=== PATIENT | male | born 1990 | race Caucasian/White ===

== ENCOUNTER 2016-07-20 11:08 | Emergency (ER) | payer MEDICAID ==
[2016-07-20] MEDS ORDERED: IBUPROFEN 600 MG TABLET PO STA (13:06)
[2016-07-20] MEDS ORDERED: DEXAMETHASONE 10 MG/ML VIAL PO STA (13:07)
[2016-07-20] MEDS ORDERED: HYDROcod/ACETAM 5/325 MG TABLET PO STA (13:07)
[2016-07-20] MEDS ORDERED: IBUPROFEN 600 MG TABLET PO ONE (13:17)
[2016-07-20] MEDS ORDERED: CHERRY SYRUP 10 ML UDC PO ONE (13:17)
[2016-07-20] MEDS ORDERED: HYDROcod/ACETAM 5/325 MG TABLET ONE (13:17)
[2016-07-20] MEDS ORDERED: DEXAMETHASONE 10 MG/ML VIAL ONE (13:17)
== END 2016-07-20 13:50 | disposition home or self-care (01) ==
DX: J06.9 Acute upper respiratory infection, unspecified (principal); S29.011A Strain of muscle and tendon of front wall of thorax, initial encounter; X58.XXXA Exposure to other specified factors, initial encounter; J45.909 Unspecified asthma, uncomplicated; K21.9 Gastro-esophageal reflux disease without esophagitis; F17.200 Nicotine dependence, unspecified, uncomplicated
CPT/HCPCS: 71020; 93005; 99283; A9270

== ENCOUNTER 2017-08-25 11:35 | Emergency (ER) | payer MEDICAID ==
--- NOTE | 2017-08-25 12:40 | XRAY Preliminary Report ---
Exam: XR CHEST 2 VIEW X-RAY IMPRESSION: Normal 2-view chest radiography. [facility] SITE ID: [id number]
--- NOTE | 2017-08-25 12:40 | XRAY Report ---
EXAM: CHEST RADIOGRAPHY EXAM DATE: 08/25/2017 12:29 PM. CLINICAL HISTORY: Cough. COMPARISON: None. TECHNIQUE: 2 views. FINDINGS: Lungs/Pleura: No focal opacities evident. No pleural effusion. No pneumothorax. Normal volumes. Mediastinum: Heart and mediastinal contours are unremarkable. Other: None. IMPRESSION: Normal 2-view chest radiography. [facility] Referring Provider Line: [phone] SITE ID: [id number]
--- NOTE | 2017-08-25 13:00 | ED Physician Documentation ---
PD HPI DYSPNEA - Stated complaint Stated Complaint: COUGH - Chief complaint Chief Complaint: Resp - History obtained from History obtained from: Patient - History of Present Illness Timing - onset: Other (27-year-old gentleman who uses tobacco but has no other history of illness except for occasional bronchitis presents with 2 days of nonproductive cough and shortness of breath without fevers. He also has a mild sore throat and runny nose.) Review of Systems Constitutional: denies: Fever, Chills Throat: reports: Sore throat Cardiac: denies: Chest pain / pressure, Palpitations Respiratory: reports: Dyspnea, Cough. denies: Hemoptysis, Wheezing GI: denies: Abdominal Pain PD PAST MEDICAL HISTORY - Past Medical History Past Medical History: Yes Respiratory: Asthma, Other GI: GERD, Other - Past Surgical History Past Surgical History: Yes HEENT: Tonsil/Adenoidectomy - Present Medications Home Medications: Ambulatory Orders Medication Instructions Recorded Confirmed Albuterol Sulfate [Albuterol 2 puffs IH Q4HR PRN #1 [email or web address] 06/11/14 07/20/16 Sulfate Hfa] Lisinopril 20 mg PO DAILY 07/20/16 07/20/16 Albuterol Sulfate [Proventil Hfa 1 - 2 puffs IH Q4H PRN #1 08/25/17 Inhaler] [email or web address] Hydrocodone Bit/Homatrop Me-Br 5 - 10 ml PO Q6H PRN #120 ml 08/25/17 [Hydrocodone-Homatropine Syrup] predniSONE [Deltasone] 60 mg PO DAILY 5 Days tablet 08/25/17 - Allergies Allergies/Adverse Reactions: Allergies Allergy/AdvReac Type Severity Reaction Status Date / Time Penicillins Allergy Unknown Verified 08/25/17 12:34 sulfamethoxazole Allergy Unknown Verified 08/25/17 12:34 [From ] trimethoprim [From ] Allergy Unknown Verified 08/25/17 12:34 - Social History Does the pt smoke?: Yes Smoking Status: Current every day smoker Does the pt drink ETOH?: Yes Does the pt have substance abuse?: Yes Substance Use and Type: Marijuana - Immunizations Immunizations are current?: No Immunizations: TDAP >10years/unknown - POLST Patient has POLST: No PD ED PE NORMAL - Vitals Vital signs reviewed: Yes - General General: Alert and oriented X 3, Other (Frequent dry cough) - HEENT HEENT: Ears normal (Bilateral cerumen), Pharynx benign - Neck Neck: Supple, no meningeal sign, No bony TTP - Cardiac Cardiac: RRR, No murmur - Respiratory Respiratory: No respiratory distress, Clear bilaterally - Abdomen Abdomen: Non tender - Extremities Extremities: No edema, No calf tenderness / cord - Neuro Neuro: Alert and oriented X 3, Normal speech Results - Vitals Vitals: Vital Signs - 24 hr 08/25/17 11:52 Temperature 36.4 C L Heart Rate 86 Respiratory 20 Rate Blood Pressure 162/92 H O2 Saturation 98 Oxygen O2 Source Room air - Rads (name of study) 2 view chest x-ray Radiology: EMP read contemporaneously (Normal) PD MEDICAL DECISION MAKING - Sepsis Event Vital Signs: Vital Signs - 24 hr 08/25/17 11:52 Temperature 36.4 C L Heart Rate 86 Respiratory 20 Rate Blood Pressure 162/92 H O2 Saturation 98 Oxygen O2 Source Room air Departure - Departure Disposition: 01 Home, Self Care Clinical Impression: Upper respiratory infection Qualifiers: URI type: unspecified viral URI Qualified Code(s): J06.9 - Acute upper respiratory infection, unspecified Condition: Good Record reviewed to determine appropriate education?: Yes Instructions: ED Viral Syndrome, ED Smoking Cessation Prescriptions: Albuterol Sulfate [Proventil Hfa Inhaler] 1 - 2 puffs IH Q4H PRN #1 [email or web address] PRN Reason: Cough Hydrocodone Bit/Homatrop Me-Br [Hydrocodone-Homatropine Syrup] 5 - 10 ml PO Q6H PRN #120 ml PRN Reason: Cough predniSONE [Deltasone] 60 mg PO DAILY 5 Days tablet Comments: Call your doctor to arrange a follow-up appointment, make the next available appointment. In the interim, return anytime if worse or if new symptoms develop. Your blood pressure was elevated today on check into the emergency department. This does not mean that you have hypertension, it is a common phenomenon to come to the emergency department and have elevated blood pressure. I recommend that you see your primary care physician within the week to have it rechecked when you are feeling better.
[2017-08-25 13:11] VITALS: BP 124/87
== END 2017-08-25 13:10 | disposition home or self-care (01) ==
LOC: ED 11:35
DX: J06.9 Acute upper respiratory infection, unspecified (principal); R03.0 Elevated blood-pressure reading, without diagnosis of hypertension; F17.200 Nicotine dependence, unspecified, uncomplicated
CPT/HCPCS: 71046; 99283

== ENCOUNTER 2017-10-16 18:26 | Emergency (ER) | payer MEDICAID ==
[2017-10-16 19:21] LABS: BASOPHILS % (AUTO) 0.5 %; EOSINOPHILS # (AUTO) 0.1 10^3/uL (0.0-0.7); EOSINOPHILS % (AUTO) 0.8 %; HGB - HEMOGLOBIN 17.8 g/dL (14.0-18.0); LYMPHOCYTES % (AUTO) 25.4 %; MEAN CORPUSCULAR HEMOGLOBIN 30.9 pg (27.0-31.0); MEAN CORPUSCULAR HGB CONC 32.7 g/dL (32.0-36.0); MEAN CORPUSCULAR VOLUME 94.4 fL (80.0-94.0); MEAN PLATELET VOLUME 7.8 fL (7.4-11.4); MONOCYTES # (AUTO) 0.7 10^3/uL (0.0-1.0); MONOCYTES % (AUTO) 8.5 %; NEUTROPHILS # (AUTO) 5.1 10^3/uL (1.5-6.6); NEUTROPHILS % (AUTO) 64.8 %; PLT - PLATELET COUNT 268 10^3/uL (130-450); RED BLOOD COUNT 5.77 10^6/uL (4.70-6.10); RED CELL DISTRIBUTION WIDTH 13.3 % (12.0-15.0); WHITE BLOOD COUNT 7.8 x10^3/uL (4.8-10.8)
[2017-10-16 19:31] LABS: ALBUMIN 4.8 g/dL (3.2-5.5); ALBUMIN/GLOBULIN RATIO 2.1 (1.0-2.2); BILIRUBIN,TOTAL 0.9 mg/dL (0.2-1.0); CALCIUM 9.1 mg/dL (8.5-10.3); TOTAL PROTEIN 7.1 g/dL (6.7-8.2)
[2017-10-16] MEDS ORDERED: LORazepam 0.5 MG TABLET PO STA (19:42)
--- NOTE | 2017-10-16 19:43 | ED Physician Documentation ---
PD HPI HEENT FB - Chief complaint Chief Complaint: Heent - History obtained from History obtained from: Patient - History of Present Illness Timing - onset: Other (He feels like the front of his neck is been swollen for the last 2 days and he has specific worries about thyroiditis or thyromegaly. He does not have a sore throat per se. He does not have any trouble swallowing but when he starts thinking about it he gets panicky and anxious. He denies any other symptoms, does not have any fevers, chills, weight loss, or lymphadenopathy.) Review of Systems Constitutional: denies: Fever, Chills Nose: denies: Rhinorrhea / runny nose, Congestion Throat: denies: Sore throat Respiratory: denies: Dyspnea, Cough PD PAST MEDICAL HISTORY - Past Medical History Past Medical History: Yes Respiratory: Asthma, Other GI: GERD, Other - Past Surgical History Past Surgical History: Yes HEENT: Tonsil/Adenoidectomy - Present Medications Home Medications: Ambulatory Orders Medication Instructions Recorded Confirmed Albuterol Sulfate [Albuterol 2 puffs IH Q4HR PRN #1 [email or web address] 06/11/14 07/20/16 Sulfate Hfa] Lisinopril 20 mg PO DAILY 07/20/16 07/20/16 Albuterol Sulfate [Proventil Hfa 1 - 2 puffs IH Q4H PRN #1 08/25/17 Inhaler] [email or web address] Lorazepam [Ativan] 1 mg PO TID PRN #7 tablet 10/16/17 - Allergies Allergies/Adverse Reactions: Allergies Allergy/AdvReac Type Severity Reaction Status Date / Time Penicillins Allergy Unknown Verified 10/16/17 18:34 sulfamethoxazole Allergy Unknown Verified 08/25/17 12:34 [From ] trimethoprim [From ] Allergy Unknown Verified 08/25/17 12:34 - Social History Does the pt smoke?: No Smoking Status: Former smoker Does the pt drink ETOH?: Yes Does the pt have substance abuse?: Yes - Immunizations Immunizations are current?: No Immunizations: TDAP >10years/unknown - POLST Patient has POLST: No PD ED PE NORMAL - Vitals Vital signs reviewed: Yes - General General: Alert and oriented X 3, No acute distress - HEENT HEENT: Pharynx benign - Neck Neck: Other (He has prominence sternocleidomastoids, I do not appreciate any specific thyromegaly or goiter. There is no adenopathy of the neck.) - Neuro Neuro: Alert and oriented X 3, Normal speech Results - Vitals Vitals: Vital Signs - 24 hr 10/16/17 18:32 Temperature 36.7 C Heart Rate 104 H Respiratory 20 Rate Blood Pressure 163/83 H O2 Saturation 96 Oxygen O2 Source Room air - Labs Labs: Laboratory Tests 10/16/17 10/16/17 10/16/17 19:12 19:13 19:13 WBC 7.8 RBC 5.77 Hgb 17.8 Hct 54.4 H MCV 94.4 H MCH 30.9 MCHC 32.7 RDW 13.3 Plt Count 268 MPV 7.8 Neut # (Auto) 5.1 Lymph # (Auto) 2.0 Brooke # (Auto) 0.7 Eos # (Auto) 0.1 Baso # (Auto) 0.0 Absolute Nucleated RBC 0.00 Nucleated RBC % 0.1 Sodium Potassium Chloride Carbon Dioxide Anion Gap BUN Creatinine Estimated GFR (MDRD) Glucose Calcium Total Bilirubin AST ALT Alkaline Phosphatase Total Protein Albumin Globulin Albumin/Globulin Ratio Lipase TSH Thyroxine (T4) Infectious Brooke Assay NEGATIVE Group A Strep Rapid Negative 10/16/17 10/16/17 19:13 19:13 WBC RBC Hgb Hct MCV MCH MCHC RDW Plt Count MPV Neut # (Auto) Lymph # (Auto) Brooke # (Auto) Eos # (Auto) Baso # (Auto) Absolute Nucleated RBC Nucleated RBC % Sodium 137 Potassium 3.6 Chloride 105 Carbon Dioxide 24 Anion Gap 8.0 BUN 14 Creatinine 1.0 Estimated GFR (MDRD) 90 Glucose 137 H Calcium 9.1 Total Bilirubin 0.9 AST 36 ALT 69 H Alkaline Phosphatase 39 L Total Protein 7.1 Albumin 4.8 Globulin 2.3 Albumin/Globulin Ratio 2.1 Lipase 28 TSH 1.12 Thyroxine (T4) 7.68 Infectious Brooke Assay Group A Strep Rapid PD MEDICAL DECISION MAKING - Sepsis Event Vital Signs: Vital Signs - 24 hr 10/16/17 18:32 Temperature 36.7 C Heart Rate 104 H Respiratory 20 Rate Blood Pressure 163/83 H O2 Saturation 96 Oxygen O2 Source Room air Departure - Departure Disposition: 01 Home, Self Care Clinical Impression: Throat pain Condition: Good Record reviewed to determine appropriate education?: Yes Instructions: ED Pharyngitis Viral Prescriptions: Lorazepam [Ativan] 1 mg PO TID PRN #7 tablet PRN Reason: Anxiety Comments: Your blood pressure was elevated today on check into the emergency department. This does not mean that you have hypertension, it is a common phenomenon to come to the emergency department and have elevated blood pressure. I recommend that you see your primary care physician within the week to have it rechecked when you are feeling better.
[2017-10-16 19:44] LABS: T4 (THYROXINE) 7.68 ug/dL (6.09-12.23)
[2017-10-16 19:47] LABS: THYROID STIMULATING HORMONE 1.12 uIU/mL (0.34-5.60)
[2017-10-16 20:16] VITALS: BP 135/86
== END 2017-10-16 20:14 | disposition home or self-care (01) ==
LOC: ED 18:26
DX: R07.0 Pain in throat (principal); R03.0 Elevated blood-pressure reading, without diagnosis of hypertension; Z87.891 Personal history of nicotine dependence
CPT/HCPCS: 80053; 83690; 84436; 84443; 85025; 86308; 87070; 87430; 99283; A9270; 36415

== ENCOUNTER 2017-10-21 14:01 | Emergency (ER) | payer MEDICAID ==
[2017-10-21] MEDS ORDERED: LORazepam 0.5 MG TABLET PO STA (14:28)
[2017-10-21] MEDS ORDERED: METOPROLOL TARTRATE 50 MG TABLET PO STA (14:28)
--- NOTE | 2017-10-21 14:34 | ED Physician Documentation ---
History of Present Illness - Stated complaint Stated Complaint: THROAT PX/ANXIETY - Chief complaint Chief Complaint: General - History obtained from History obtained from: Patient - Additonal information Additional information: The patient is a 27-year-old male who presents with a feeling of anxiety or panicky feeling. He reports cough with scant sputum production, and feeling of thickness in his throat. He denies sore throat or fever. He is concerned about his heart racing. He reports nausea, without vomiting. He was seen here 5 days ago with similar symptoms, and at that time had a negative strep screen, negative Monospot, normal TSH and T4, and normal CBC and chemistry panel. He was diagnosed with viral pharyngitis and anxiety, and was prescribed 7 Ativan tablets. He states the Ativan helped, but he has run out and his symptoms have persisted. He quit smoking cigarettes 2 weeks ago during a bout of bronchitis. He has a history of hypertension for which he has been prescribed lisinopril. He lost his medication about 1 month ago and has not been taking any antihypertensive medication since that time. Review of Systems Constitutional: denies: Fever Eyes: denies: Discharge, Irritation Ears: denies: Ear pain, Tinnitus/ringing Nose: denies: Congestion Throat: denies: Sore throat Cardiac: denies: Chest pain / pressure Respiratory: reports: Dyspnea (Occasionally), Cough GI: denies: Abdominal Pain, Vomiting, Diarrhea : denies: Dysuria Skin: denies: Rash Musculoskeletal: denies: Back pain, Extremity swelling Neurologic: denies: Headache PD PAST MEDICAL HISTORY - Past Medical History Respiratory: Asthma, Other GI: GERD, Other - Past Surgical History Past Surgical History: Yes HEENT: Tonsil/Adenoidectomy - Present Medications Home Medications: Ambulatory Orders Medication Instructions Recorded Confirmed Albuterol Sulfate [Albuterol 2 puffs IH Q4HR PRN #1 [email or web address] 06/11/14 07/20/16 Sulfate Hfa] Lisinopril 20 mg PO DAILY 07/20/16 07/20/16 Albuterol Sulfate [Proventil Hfa 1 - 2 puffs IH Q4H PRN #1 08/25/17 Inhaler] [email or web address] Lorazepam [Ativan] 1 mg PO TID PRN #7 tablet 10/16/17 - Allergies Allergies/Adverse Reactions: Allergies Allergy/AdvReac Type Severity Reaction Status Date / Time Penicillins Allergy Unknown Verified 10/21/17 14:14 sulfamethoxazole Allergy Unknown Verified 10/21/17 14:14 [From Novra] trimethoprim [From ] Allergy Unknown Verified 10/21/17 14:14 - Social History Does the pt smoke?: No Smoking Status: Former smoker Does the pt drink ETOH?: Yes Does the pt have substance abuse?: Yes - Immunizations Immunizations are current?: No Immunizations: TDAP >10years/unknown - POLST Patient has POLST: No Results - Vitals Vitals: Vital Signs - 24 hr 10/21/17 10/21/17 10/21/17 14:09 15:26 17:01 Temperature 37.3 C Heart Rate 117 H 104 H 90 Respiratory 18 18 18 Rate Blood Pressure 168/87 H 170/104 H 150/91 H O2 Saturation 97 98 96 Oxygen O2 Source Room air - Rads (name of study) 2-view CXR Radiology: Prelim report reviewed, EMP read contemporaneously, See rad report PD MEDICAL DECISION MAKING - ED course Complexity details: reviewed old records, reviewed results, re-evaluated patient , considered differential, d/w patient ED course: The patient's presentation is significant for anxiety reaction, with associated tachycardia and hypertension. Withdrawal reaction is considered, but it is not clear as to what the patient may be withdrawing. He has been out of his lisinopril for about one month, which may help explain his hypertension, but does not really explain his other symptoms. He denies the use of alcohol or other drugs. Hyperthyroidism is unlikely with a normal TSH and T4. I doubt pulmonary embolus. Treatment in the emergency department included administration of metoprolol 25 mg orally and lorazepam 0.5 mg orally. On reevaluation the patient feels subjectively much improved, and his vital signs also improved. He has a prescription for lisinopril waiting for him at the pharmacy. I discussed with him the importance of resuming his antihypertensive medication, outpatient follow-up, as well as potentially worrisome signs or symptoms that should prompt reevaluation in the emergency department. - Sepsis Event Vital Signs: Vital Signs - 24 hr 18 18 10/21/17 14:09 15:26 17:01 Temperature 37.3 C Heart Rate 117 H 104 H 90 Respiratory 18 18 18 Rate Blood Pressure 168/87 H 170/104 H 150/91 H O2 Saturation 97 98 96 Oxygen O2 Source Room air Departure - Departure Disposition: 01 Home, Self Care Clinical Impression: Anxiety, Tachycardia Hypertension Qualifiers: Hypertension type: unspecified secondary hypertension Qualified Code(s): I15.9 - Secondary hypertension, unspecified Condition: Stable Instructions: ED Stress React Follow-Up: Iwona Cazares ARNP [Primary Care Provider] - Comments: Resume taking your lisinopril as previously prescribed. Follow up with your primary physician within 2 weeks. Call to schedule appointment. Return to the emergency department if you develop recurrent anxiety reaction, increasing difficulty breathing, or otherwise worsening symptoms. Discharge Date/Time: 10/21/17 17:22
--- NOTE | 2017-10-21 16:10 | XRAY Report ---
Procedure Date: 10/21/2017 Accession Number: [id number] / [id number] Procedure: XR - Chest 2 View X-Ray CPT Code: 66316 FULL RESULT: EXAM: CHEST RADIOGRAPHY EXAM DATE: 10/21/2017 04:00 PM. CLINICAL HISTORY: Cough and dyspnea. COMPARISON: CHEST 2 VIEW 08/25/2017. TECHNIQUE: 2 views. FINDINGS: Lungs/Pleura: No focal opacities evident. No pleural effusion. No pneumothorax. Normal volumes. Mediastinum: Heart and mediastinal contours are unremarkable. Other: None. IMPRESSION: Negative chest. [facility]
[2017-10-21 17:01] VITALS: BP 150/91
--- NOTE | 2017-10-31 07:27 | ED Physician Documentation ---
ED Addendum - Addendum Addendum: 10/31/17 07:21 This is an addendum to the previous dictation of 10/21/2017, to report physical exam, which was inadvertently omitted from that report. Vitals: Initially tachycardic at 117. General: Well developed, well-nourished male who appears anxious. HEENT: Normocephalic, atraumatic; PERRL, EOMI, oropharynx nonerythematous. Neck: Supple, without adenopathy or thyromegaly. Cardiac: rapid rate, regular rhythm, without murmur. Respiratory: Clear breath sounds bilaterally, without wheezes, rales, or rhonchi. Abdomen: Soft, nontender, without organomegaly. Back: no CVA tenderness. Derm: No rash. Extremities: No calf tenderness. Neuro: Alert, oriented x 3, no focal motor or sensory deficit.
== END 2017-10-21 17:22 | disposition home or self-care (01) ==
LOC: ED 14:01
DX: F41.9 Anxiety disorder, unspecified (principal); R00.0 Tachycardia, unspecified; I10 Essential (primary) hypertension; Z91.14 Patient's other noncompliance with medication regimen
CPT/HCPCS: 71046; 99283; A9270

== ENCOUNTER 2018-08-05 23:43 | Outpatient (CLI) | payer MEDICAID | END 2018-08-05 23:44 | disposition critical access hospital (66) | LOC: EMS 23:43 | PROVIDERS: ATTEND Surgery | DX: K92.0 Hematemesis (principal); R06.02 Shortness of breath; S01.512A Laceration without foreign body of oral cavity, initial encounter; R52 Pain, unspecified; X58.XXXA Exposure to other specified factors, initial encounter ==

== ENCOUNTER 2018-08-06 00:41 | Emergency (ER) | payer MEDICAID ==
--- NOTE | 2018-08-06 03:11 | XRAY Report ---
Reason: cough Procedure Date: 08/06/2018 Accession Number: [id number] / [id number] Procedure: XR - Chest 2 View X-Ray CPT Code: 85643 FULL RESULT: EXAM: CHEST RADIOGRAPHY EXAM DATE: 08/06/2018 03:03 AM. CLINICAL HISTORY: Cough. COMPARISON: CHEST 2 VIEW 10/21/2017 3:54 PM. TECHNIQUE: 2 views. FINDINGS: Lungs/Pleura: No focal opacities evident. No pleural effusion. No pneumothorax. Normal volumes. Mediastinum: Heart and mediastinal contours are unremarkable. Other: None. IMPRESSION: Normal 2-view chest radiography. [facility]
--- NOTE | 2018-08-06 03:13 | ED Physician Documentation ---
History of Present Illness - Stated complaint Stated Complaint: COUGHING BLOOD - Chief complaint Chief Complaint: Resp - History obtained from History obtained from: Patient - History of Present Illness Timing: How many days ago (1-2) Pain level now: 6 Improved by: nothing Worsened by: swallowing, coughing - Additonal information Additional information: c/o 1-2 days of cough that is occasionally productive. c/o sore throat. had scant blood earlier this evening which he believes is from underside of tongue, and he believes this was from the frequent coughing Review of Systems Constitutional: reports: Fever (subjective (did not take temperature but feels as though he has been having fevers)), Chills, Sweats Ears: reports: Reviewed and negative Nose: reports: Reviewed and negative Throat: reports: Sore throat Cardiac: denies: Chest pain / pressure Respiratory: reports: Cough. denies: Dyspnea, Hemoptysis, Wheezing PD PAST MEDICAL HISTORY - Past Medical History Past Medical History: Yes Respiratory: Asthma, Other GI: GERD, Other - Past Surgical History Past Surgical History: Yes HEENT: Tonsil/Adenoidectomy - Present Medications Home Medications: Ambulatory Orders Medication Instructions Recorded Confirmed Albuterol Sulfate [Albuterol 2 puffs IH Q4HR PRN #1 [email or web address].ad 06/11/14 07/20/16 Sulfate Hfa] Lisinopril 20 mg PO DAILY 07/20/16 07/20/16 Albuterol Sulfate [Proventil Hfa 1 - 2 puffs IH Q4H PRN #1 08/25/17 Inhaler] [email or web address].ad Lorazepam [Ativan] 1 mg PO TID PRN #7 tablet 10/16/17 Azithromycin [Zithromax] 250 mg PO DAILY #4 tablet 08/06/18 guaiFENesin/CODEINE [Robitussin AC] 10 ml PO Q6H PRN #100 udc 08/06/18 - Allergies Allergies/Adverse Reactions: Allergies Allergy/AdvReac Type Severity Reaction Status Date / Time Penicillins Allergy Unknown Verified 10/21/17 14:14 sulfamethoxazole Allergy Unknown Verified 10/21/17 14:14 [From ] trimethoprim [From ] Allergy Unknown Verified 10/21/17 14:14 - Social History Does the pt smoke?: No Smoking Status: Never smoker Does the pt drink ETOH?: Yes Does the pt have substance abuse?: No - Immunizations Immunizations are current?: No Immunizations: TDAP >10years/unknown - POLST Patient has POLST: No PD ED PE NORMAL - Vitals Vital signs reviewed: Yes - General General: Alert and oriented X 3, No acute distress, Well developed/nourished - HEENT HEENT: Moist mucous membranes - Neck Neck: Supple, no meningeal sign - Cardiac Cardiac: No murmur - Respiratory Respiratory: No respiratory distress, Clear bilaterally PD ED PE EXPANDED - HEENT HEENT: Pharyngeal erythema, Other (no intraoral bleeding nor lesions to suggest source of previous bleeding). No: Tonsillar exudate - Cardiac Cardiac: Tachy, Regular Rhythm Results - Vitals Vitals: Vital Signs - 24 hr 08/06/18 08/06/18 08/06/18 00:44 02:39 04:25 Temperature 36.8 C Heart Rate 119 H 90 78 Respiratory 18 18 16 Rate Blood Pressure 135/83 H 141/83 H 113/62 O2 Saturation 98 98 95 Oxygen O2 Source Room air - Labs Labs: Laboratory Tests 08/06/18 03:30 Group A Strep Rapid POSITIVE H - Rads (name of study) chest xray Radiology: Prelim report reviewed, See rad report PD MEDICAL DECISION MAKING - ED course Complexity details: reviewed results, re-evaluated patient, considered differential, d/w patient Departure - Departure Disposition: 01 Home, Self Care Clinical Impression: Strep throat Condition: Good Instructions: ED Strep Pharyngitis Conf Prescriptions: Azithromycin [Zithromax] 250 mg PO DAILY #4 tablet guaiFENesin/CODEINE [Robitussin AC] 10 ml PO Q6H PRN #100 udc PRN Reason: Cough Discharge Date/Time: 08/06/18 05:00
[2018-08-06] MEDS ORDERED: guaiFENesin/CODEINE 5 ML UDC PO STA (03:27)
[2018-08-06 04:26] VITALS: BP 113/62
[2018-08-06] MEDS ORDERED: AZITHROMYCIN 250 MG TABLET PO STA (04:33)
== END 2018-08-06 05:00 | disposition home or self-care (01) ==
LOC: ED 00:41
DX: J02.0 Streptococcal pharyngitis (principal)
CPT/HCPCS: 71046; 87430; 99283; A9270

== ENCOUNTER 2018-09-06 08:00 | Outpatient (CLI) | payer MEDICAID ==
[2018-09-06 12:26] LABS: BASOPHILS # (AUTO) 0.1 10^3/uL (0.0-0.1); BASOPHILS % (AUTO) 1.1 %; EOSINOPHILS # (AUTO) 0.1 10^3/uL (0.0-0.7); EOSINOPHILS % (AUTO) 1.9 %; HGB - HEMOGLOBIN 16.7 g/dL (14.0-18.0); LYMPHOCYTES # (AUTO) 2.6 10^3/uL (1.5-3.5); LYMPHOCYTES % (AUTO) 42.6 %; MEAN CORPUSCULAR HEMOGLOBIN 29.5 pg (27.0-31.0); MEAN CORPUSCULAR HGB CONC 32.4 g/dL (32.0-36.0); MEAN PLATELET VOLUME 9.5 fL (7.4-11.4); MONOCYTES # (AUTO) 0.6 10^3/uL (0.0-1.0); MONOCYTES % (AUTO) 9.5 %; NEUTROPHILS # (AUTO) 2.8 10^3/uL (1.5-6.6); NEUTROPHILS % (AUTO) 44.6 %; PLT - PLATELET COUNT 250 10^3/uL (130-450); RED BLOOD COUNT 5.67 10^6/uL (4.70-6.10); RED CELL DISTRIBUTION WIDTH 13.2 % (12.0-15.0); WHITE BLOOD COUNT 6.2 x10^3/uL (4.8-10.8)
[2018-09-06 12:57] LABS: ALBUMIN 4.5 g/dL (3.2-5.5); ALBUMIN/GLOBULIN RATIO 1.6 (1.0-2.2); ALKALINE PHOSPHATASE 34 IU/L (42-121); ALT ALANINE AMINOTRANSFERASE 35 IU/L (10-60); AST ASPARTATE AMINOTRANSFERASE 22 IU/L (10-42); BILIRUBIN,TOTAL 1.1 mg/dL (0.2-1.0); BUN - BLOOD UREA NITROGEN 16 mg/dL (6-20); CALCIUM 9.2 mg/dL (8.5-10.3); CARBON DIOXIDE - CO2 23 mmol/L (21-32); CHLORIDE 105 mmol/L (101-111); CHOL/HDL RATIO 4.4 (<5.0); CHOLESTEROL 160 mg/dL; GFR - MDRD 89 (>89); GLUCOSE 105 mg/dL (70-100); HDL CHOLESTEROL 36 mg/dL; LDL CHOLESTEROL,CALCULATED 106 mg/dL; LDL/HDL RATIO 2.9 (<3.6); SODIUM 137 mmol/L (135-145); TOTAL PROTEIN 7.4 g/dL (6.7-8.2); VLDL CHOLESTEROL 18 mg/dL
[2018-09-06 12:58] LABS: HEMOGLOBIN A1C 0.69 g/dL; HEMOGLOBIN A1C % 5.7 % (4.6-6.2)
== END 2018-09-06 23:59 | disposition home or self-care (01) ==
LOC: LAB.N 08:00
PROVIDERS: ATTEND Nurse Practitioner Gerontology
DX: R74.8 Abnormal levels of other serum enzymes (principal); R73.9 Hyperglycemia, unspecified; I10 Essential (primary) hypertension
CPT/HCPCS: 36415; 80053; 80061; 83036; 83721; 84443; 85025

== ENCOUNTER 2018-11-06 19:48 | Emergency (ER) | payer MEDICAID ==
--- NOTE | 2018-11-06 20:37 | XRAY Report ---
Reason: pain s/p pop and twisting ankle Procedure Date: 11/06/2018 Accession Number: [id number] / [id number] Procedure: XR - Ankle 3 View LT CPT Code: FULL RESULT: EXAM: LEFT ANKLE RADIOGRAPHY EXAM DATE: 11/06/2018 08:13 PM. CLINICAL HISTORY: Acute lateral left ankle pain, tenderness or discoloration and swelling after a twisting injury with an audible pop. COMPARISON: None. TECHNIQUE: 3 views. FINDINGS: Bones: There is an acute closed nondisplaced avulsion fracture of the lateral malleolus. There is an acute closed nondisplaced avulsion fracture of the anterior talofibular ligament at the talar insertion. No other fracture. Normal bone mineralization. No focal bone lesion. Joints: Normal. No effusion. No subluxations. The ankle mortise is normally aligned. Soft Tissues: Lateral left ankle soft tissue swelling. IMPRESSION: 1. Acute closed nondisplaced avulsion fractures of the lateral malleolus and the talar insertion of the anterior talofibular ligament. 2. Regional soft tissue swelling. 3. The remainder of the left ankle radiography is unremarkable. [facility]
--- NOTE | 2018-11-06 23:20 | ED Physician Documentation ---
PD HPI LOWER EXT INJURY - Stated complaint Stated Complaint: L ANKLE INJ - Chief complaint Chief Complaint: Ext Problem - History obtained from History obtained from: Patient - History of Present Illness PD HPI LOW EXT INJURY LOCATION: Left, Ankle Type of injury: Twist Timing - onset: How many days ago (3) Timing - details: Abrupt onset, Still present Worsened by: Moving, Palpating, Other (walking.) Associated symptoms: Swelling, Discolored (bruising along lateral ankle and side of foot.) Contributing factors: No: Prior ortho surgery Similar symptoms before: Has not had sx before Review of Systems Skin: denies: Abrasion (s), Laceration (s) Musculoskeletal: reports: Joint pain Neurologic: denies: Focal weakness, Numbness PD PAST MEDICAL HISTORY - Past Medical History Past Medical History: Yes Cardiovascular: Hypertension, High cholesterol Respiratory: Asthma, Other Neuro: None Endocrine/Autoimmune: None GI: GERD, Other : None HEENT: None Psych: Anxiety Musculoskeletal: None Derm: None - Past Surgical History Past Surgical History: Yes HEENT: Tonsil/Adenoidectomy - Present Medications Home Medications: Ambulatory Orders Medication Instructions Recorded Confirmed Albuterol Sulfate [Albuterol 2 puffs IH Q4HR PRN #1 [email or web address] 06/11/14 07/20/16 Sulfate Hfa] Lisinopril 20 mg PO DAILY 07/20/16 07/20/16 Albuterol Sulfate [Proventil Hfa 1 - 2 puffs IH Q4H PRN #1 08/25/17 Inhaler] [email or web address] Lorazepam [Ativan] 1 mg PO TID PRN #7 tablet 10/16/17 Azithromycin [Zithromax] 250 mg PO DAILY #4 tablet 08/06/18 guaiFENesin/CODEINE [Robitussin AC] 10 ml PO Q6H PRN #100 [facility] 08/06/18 - Allergies Allergies/Adverse Reactions: Allergies Allergy/AdvReac Type Severity Reaction Status Date / Time Penicillins Allergy Unknown Verified 11/06/18 19:58 sulfamethoxazole Allergy Unknown Verified 11/06/18 19:58 [From ] trimethoprim [From ] Allergy Unknown Verified 11/06/18 19:58 - Social History Does the pt smoke?: No Smoking Status: Former smoker Does the pt drink ETOH?: Yes Does the pt have substance abuse?: Yes Substance Use and Type: Marijuana - Immunizations Immunizations are current?: No Immunizations: TDAP >10years/unknown - POLST Patient has POLST: No PD ED PE NORMAL - Vitals Vital signs reviewed: Yes - General General: Alert and oriented X 3, No acute distress, Well developed/nourished - Derm Derm: Normal color, Warm and dry - Extremities Extremities: Other (left ankle with bruising and swelling laterally with tenderness at distal fibula. Medially not tender. ) - Neuro Neuro: Alert and oriented X 3, No motor deficit, No sensory deficit, Normal speech Results - Vitals Vitals: Vital Signs - 24 hr 11/06/18 23:45 Temperature 37.5 C Heart Rate 104 H Respiratory 20 Rate Blood Pressure 151/88 H O2 Saturation 98 Oxygen O2 Source Room air - Rads (name of study) left ankle Radiology: Prelim report reviewed (distal fibular avulsion fracture. ), See rad report PD MEDICAL DECISION MAKING - ED course Complexity details: reviewed results, considered differential, d/w patient Departure - Departure Disposition: 01 Home, Self Care Clinical Impression: Avulsion fracture of ankle Qualifiers: Encounter type: initial encounter Fracture type: closed Laterality: left Qualified Code(s): S82.892A - Other fracture of left lower leg, initial encounter for closed fracture Condition: Stable Record reviewed to determine appropriate education?: Yes Instructions: ED Fx Ankle Lateral Malleolus Follow-Up: Iwnoa Cazares ARNP [Primary Care Provider] - Keven Graves MD [Provider Admit Priv/Credential] - Comments: There is a small avulsion of bone off the end of the fibula which is the bone at the outside of the ankle. This represents an upper routing of the ligament attachment. We treated more as a torn ligament rather than a tractor per se would still use a walking cast boot when up and around for about 4 weeks. Follow-up with orthopedics in about a week to ensure its healing initially well enough. Call for an appointment. Ibuprofen or naproxen twice daily and add Tylenol if needed. Activity as tolerated. Discharge Date/Time: 11/06/18 23:48
[2018-11-06 23:46] VITALS: BP 151/88
== END 2018-11-06 23:48 | disposition home or self-care (01) ==
LOC: ED 19:48
DX: S82.65XA Nondisplaced fracture of lateral malleolus of left fibula, initial encounter for closed fracture (principal); S92.155A Nondisplaced avulsion fracture (chip fracture) of left talus, initial encounter for closed fracture; X50.1XXA Overexertion from prolonged static or awkward postures, initial encounter; I10 Essential (primary) hypertension; Z87.891 Personal history of nicotine dependence
CPT/HCPCS: 99283

== ENCOUNTER 2020-01-16 18:56 | Emergency (ER) | payer MEDICAID ==
[2020-01-16 19:05] VITALS: BP 169/80
--- NOTE | 2020-01-16 20:20 | ED Physician Documentation ---
History of Present Illness - Stated complaint Stated Complaint: COUGH - Chief complaint Chief Complaint: Resp - History obtained from History obtained from: Patient - Additonal information Additional information: 29-year-old male presents to the emergency department for evaluation of cough. He reports that he has a chronic cough perhaps for as long as a few years. However over the last week it has gotten worse. He is somewhat concerned he may have Covid. He reports that when he coughs he feels "really bad." He states that in the a.m. when he coughs the sputum that he brings up can be black and smell bad. He denies COVID-19 exposures. He reports that he does have some congestion but no fevers. He has a sore throat but no tonsillar exudate. No abdominal pain nausea or vomiting. He is a smoker, up to 1/2 pack/day though he is trying to quit. Review of Systems Constitutional: reports: Reviewed and negative Nose: reports: Congestion Throat: reports: Sore throat. denies: Oral lesions / sores, Swollen tonsils Cardiac: reports: Reviewed and negative Respiratory: reports: Cough. denies: Dyspnea, Hemoptysis, Wheezing GI: reports: Reviewed and negative : reports: Reviewed and negative Skin: reports: Reviewed and negative Musculoskeletal: reports: Reviewed and negative Neurologic: reports: Reviewed and negative PD PAST MEDICAL HISTORY - Past Medical History Cardiovascular: Hypertension, High cholesterol Respiratory: Asthma, Other Neuro: None Endocrine/Autoimmune: None GI: GERD, Other : None HEENT: None Psych: Anxiety Musculoskeletal: None Derm: None - Past Surgical History Past Surgical History: Yes HEENT: Tonsil/Adenoidectomy - Present Medications Home Medications: Ambulatory Orders Medication Instructions Recorded Confirmed Albuterol Sulfate [Albuterol 2 puffs IH Q4HR PRN #1 [email or web address] 06/11/14 07/20/16 Sulfate Hfa] Lisinopril 20 mg PO DAILY 07/20/16 07/20/16 Albuterol Sulfate [Proventil Hfa 1 - 2 puffs IH Q4H PRN #1 08/25/17 Inhaler] [email or web address] Lorazepam [Ativan] 1 mg PO TID PRN #7 tablet 10/16/17 Azithromycin [Zithromax] 250 mg PO DAILY #4 tablet 08/06/18 guaiFENesin/CODEINE [Robitussin AC] 10 ml PO Q6H PRN #100 [facility] [place] 08/06/18 - Allergies Allergies/Adverse Reactions: Allergies Allergy/AdvReac Type Severity Reaction Status Date / Time Penicillins Allergy Severe Anaphylaxis Verified 01/16/20 19:06 sulfamethoxazole Allergy Severe Anaphylaxis Verified 01/16/20 19:06 [From ] trimethoprim [From ] Allergy Severe Anaphylaxis Verified 01/16/20 19:06 - Social History Does the pt smoke?: Yes Smoking Status: Current every day smoker Does the pt drink ETOH?: Yes Does the pt have substance abuse?: Yes Substance Use and Type: Marijuana - Immunizations Immunizations are current?: No Immunizations: TDAP >10years/unknown - POLST Patient has POLST: No PD ED PE NORMAL - General General: Alert and oriented X 3, No acute distress - HEENT HEENT: PERRL, EOMI, Ears normal, Moist mucous membranes, Pharynx benign - Neck Neck: Supple, no meningeal sign, No adenopathy - Cardiac Cardiac: RRR, No murmur, No gallop - Respiratory Respiratory: No respiratory distress, Clear bilaterally - Abdomen Abdomen: Normal bowel sounds, Soft, Non tender Results - Vitals Vitals: Vital Signs - 24 hr 01/16/20 19:01 Temperature 37.2 C Heart Rate 83 Respiratory 20 Rate Blood Pressure 169/80 H O2 Saturation 96 Oxygen O2 Source Room air - Rads (name of study) CXR Radiology: EMP read indepedently (No acute cardiopulmonary findings) PD MEDICAL DECISION MAKING - ED course Complexity details: reviewed results, re-evaluated patient, considered differential, d/w patient ED course: This is a very well-appearing 29-year-old male who presents to the emergency department for evaluation of a cough that he has had for a number of years that he attributes to his smoking. However over the last week his cough has worsened and he reports coughing up black sputum. He has no fevers but does endorse congestion and a sore throat. COVID-19 screening is pending. I have reviewed his chest x-ray and do not find any acute cardiopulmonary abnormality. At this time I suspect that this gentleman likely has a viral upper respiratory infection. He has a very reassuring cardiopulmonary exam with full pulmonary excursion and no hypoxia. I do recommend that he remain at home and quarantine until the COVID-19 results are known. I recommend lots of fluids and smoking cessation. Emergent return precautions were discussed Departure - Departure Disposition: 01 Home, Self Care Clinical Impression: Cough, Encounter for screening laboratory testing for COVID-19 virus, Upper respiratory infection, acute Condition: Stable Record reviewed to determine appropriate education?: Yes Comments: Kelton your lungs sound very clear and normal on exam. Your chest x-ray does not show any worrisome findings. We are screening you today for COVID-19. You must remain at home until the COVID-19 results are known. We will only call you if the test is positive. You can review the results of your test in 24 to 72 hours online through the [employer] portal. I do suspect however that the cause of your worsening cough is likely a viral upper respiratory infection. I recommend that you stop smoking. I recommend you use a humidifier in your room at night and stay well-hydrated. Return to the emergency department if you develop fevers, have bloody sputum, or cannot breathe adequately
--- NOTE | 2020-01-16 20:57 | XRAY Report ---
PROCEDURE: Chest 1 View X-Ray INDICATIONS: chest pain TECHNIQUE: One view of the chest was acquired. COMPARISON: 08/06/2018 FINDINGS: Surgical changes and devices: None. Lungs and pleura: No pleural effusions or pneumothorax. Lungs are clear. Mediastinum: Mediastinal contours appear normal. Heart size is normal. Bones and chest wall: No suspicious bony lesions. Overlying soft tissues appear unremarkable. IMPRESSION: Chest without acute cardiopulmonary abnormalities. Reviewed by: Earnest London MD on 01/16/2020 8:55 PM PDT Approved by: Earnest London MD on 01/16/2020 8:55 PM PDT Station ID: [id number]
== END 2020-01-16 20:41 | disposition home or self-care (01) ==
LOC: ED 18:56
DX: J06.9 Acute upper respiratory infection, unspecified (principal); I10 Essential (primary) hypertension; F17.200 Nicotine dependence, unspecified, uncomplicated; Z20.828 Contact with and (suspected) exposure to other viral communicable diseases
CPT/HCPCS: 71045; 99282; 99284

== ENCOUNTER 2020-01-28 14:32 | Emergency (ER) | payer MEDICAID ==
[2020-01-28 14:42] VITALS: BP 138/88
[2020-01-28] MEDS ORDERED: CLINDAMYCIN 150 MG CAPSULE PO STA (14:56)
[2020-01-28] MEDS ORDERED: TETANUS/DIPHTHERIA/PERTUSSIS 0.5 ML SYRINGE IM ONE (14:56)
--- NOTE | 2020-01-28 14:59 | ED Physician Documentation ---
History of Present Illness - Stated complaint Stated Complaint: LT FOOT SWOLLEN/PX - Chief complaint Chief Complaint: Ext Problem - History obtained from History obtained from: Patient - History of Present Illness Timing: How many days ago (3) Pain level max: 8 Pain level now: 4 - Additonal information Additional information: L foot pain, redness, swelling x 3 days. Started after scratching his foot. No fevers. No chills. Worse with walking, better with rest. No injury. Review of Systems Constitutional: denies: Fever, Chills GI: denies: Vomiting Skin: denies: Rash PD PAST MEDICAL HISTORY - Past Medical History Cardiovascular: Hypertension, High cholesterol Respiratory: Asthma, Other Neuro: None Endocrine/Autoimmune: None GI: GERD, Other : None HEENT: None Psych: Anxiety Musculoskeletal: None Derm: None - Past Surgical History Past Surgical History: Yes HEENT: Tonsil/Adenoidectomy - Present Medications Home Medications: Ambulatory Orders Medication Instructions Recorded Confirmed Albuterol Sulfate [Albuterol 2 puffs IH Q4HR PRN #1 [email or web address] 06/11/14 07/20/16 Sulfate Hfa] Lisinopril 20 mg PO DAILY 07/20/16 07/20/16 Albuterol Sulfate [Proventil Hfa 1 - 2 puffs IH Q4H PRN #1 08/25/17 Inhaler] [email or web address] Lorazepam [Ativan] 1 mg PO TID PRN #7 tablet 10/16/17 Azithromycin [Zithromax] 250 mg PO DAILY #4 tablet 08/06/18 guaiFENesin/CODEINE [Robitussin AC] 10 ml PO Q6H PRN #100 [facility] 08/06/18 clindamycin HCL [Cleocin HCl] 300 mg PO Q6HR #40 capsule 01/28/20 - Allergies Allergies/Adverse Reactions: Allergies Allergy/AdvReac Type Severity Reaction Status Date / Time Penicillins Allergy Severe Anaphylaxis Verified 01/28/20 14:39 sulfamethoxazole Allergy Severe Anaphylaxis Verified 01/28/20 14:39 [From ] trimethoprim [From ] Allergy Severe Anaphylaxis Verified 01/28/20 14:39 - Social History Does the pt smoke?: Yes Smoking Status: Current every day smoker Does the pt drink ETOH?: Yes Does the pt have substance abuse?: Yes - Immunizations Immunizations are current?: No Immunizations: TDAP >10years/unknown - POLST Patient has POLST: No PD ED PE NORMAL - Vitals Vital signs reviewed: Yes - General General: Alert and oriented X 3, No acute distress - HEENT HEENT: Moist mucous membranes - Neck Neck: Supple, no meningeal sign - Derm Derm: Warm and dry - Extremities Extremities: Other (L foot - mild erythema to the dorsum of the foot, small open sore to the dorsum of the foot near the base of the 3rd and 4th toes. NVI.) - Neuro Neuro: Alert and oriented X 3 - Psych Psych: Normal mood, Normal affect Results - Vitals Vitals: Vital Signs - 24 hr 01/28/20 14:39 Temperature 36.5 C Heart Rate 97 Respiratory 16 Rate Blood Pressure 138/88 H O2 Saturation 97 Oxygen O2 Source Room air PD MEDICAL DECISION MAKING - ED course Complexity details: considered differential, d/w patient ED course: Patient with what appears to be cellulitis of the left foot. Unclear mechanism, but does appear to have an open sore where this started. Tdap given. Will place on antibiotics and have him follow-up with his doctor for further care. Patient counseled regarding signs and symptoms for which I believe and urgent re-evaluation would be necessary. Patient with good understanding of and agreement to plan and is comfortable going home at this time This document was made in part using voice recognition software. While efforts are made to proofread this document, sound alike and grammatical errors may occur. Departure - Departure Disposition: 01 Home, Self Care Clinical Impression: Cellulitis Qualifiers: Site of cellulitis: extremity Site of cellulitis of extremity: lower extremity Laterality: left Qualified Code(s): L03.116 - Cellulitis of left lower limb Condition: Good Instructions: ED Infec Skin Cellulitis Follow-Up: your,doctor in 3-5 days for recheck [Other] Prescriptions: clindamycin HCL [Cleocin HCl] 300 mg PO Q6HR #40 capsule Comments: Take all antibiotics until gone. Return if you worsen. You should start to notice improvement in the next 24-36 hrs Discharge Date/Time: 01/28/20 15:08
== END 2020-01-28 15:08 | disposition home or self-care (01) ==
LOC: ED 14:32
DX: L03.116 Cellulitis of left lower limb (principal); Z23 Encounter for immunization; I10 Essential (primary) hypertension; F17.200 Nicotine dependence, unspecified, uncomplicated
CPT/HCPCS: 90471; 90715; 99283; 99284; A9270

== ENCOUNTER 2020-05-01 13:09 | Outpatient (CLI) | payer MEDICAID ==
[2020-05-01 18:14] LABS: BASOPHILS # (AUTO) 0.1 10^3/uL (0.0-0.1); EOSINOPHILS # (AUTO) 0.1 10^3/uL (0.0-0.7); EOSINOPHILS % (AUTO) 1.5 %; HGB - HEMOGLOBIN 17.8 g/dL (14.0-18.0); LYMPHOCYTES # (AUTO) 1.8 10^3/uL (1.5-3.5); LYMPHOCYTES % (AUTO) 33.6 %; MEAN CORPUSCULAR HEMOGLOBIN 30.8 pg (27.0-31.0); MEAN CORPUSCULAR HGB CONC 33.7 g/dL (32.0-36.0); MEAN CORPUSCULAR VOLUME 91.3 fL (80.0-94.0); MEAN PLATELET VOLUME 10.1 fL (7.4-11.4); MONOCYTES # (AUTO) 0.5 10^3/uL (0.0-1.0); MONOCYTES % (AUTO) 8.6 %; NEUTROPHILS # (AUTO) 2.9 10^3/uL (1.5-6.6); NEUTROPHILS % (AUTO) 55.1 %; PLT - PLATELET COUNT 257 10^3/uL (130-450); RED BLOOD COUNT 5.78 10^6/uL (4.70-6.10); RED CELL DISTRIBUTION WIDTH 12.5 % (12.0-15.0); WHITE BLOOD COUNT 5.2 x10^3/uL (4.8-10.8)
[2020-05-01 18:43] LABS: ALBUMIN 4.8 g/dL (3.2-5.5); ALBUMIN/GLOBULIN RATIO 1.9 (1.0-2.2); ALKALINE PHOSPHATASE 33 IU/L (42-121); ALT ALANINE AMINOTRANSFERASE 58 IU/L (10-60); AST ASPARTATE AMINOTRANSFERASE 27 IU/L (10-42); BILIRUBIN,TOTAL 0.9 mg/dL (0.2-1.0); BUN - BLOOD UREA NITROGEN 15 mg/dL (6-20); CALCIUM 9.2 mg/dL (8.5-10.3); CARBON DIOXIDE - CO2 24 mmol/L (21-32); CHLORIDE 102 mmol/L (101-111); CHOL/HDL RATIO 4.2 (<5.0); CHOLESTEROL 164 mg/dL; CREATININE 0.9 mg/dL (0.6-1.2); GLUCOSE 90 mg/dL (70-100); HDL CHOLESTEROL 39 mg/dL; LDL CHOLESTEROL,CALCULATED 107 mg/dL; LDL/HDL RATIO 2.7 (<3.6); TOTAL PROTEIN 7.3 g/dL (6.7-8.2); VLDL CHOLESTEROL 18 mg/dL
[2020-05-01 19:44] LABS: HEMOGLOBIN A1c% 5.5 % (4.27-6.07)
== END 2020-05-01 23:59 | disposition home or self-care (01) ==
LOC: LAB.WCP 13:09
PROVIDERS: ATTEND Nurse Practitioner Family
DX: R74.8 Abnormal levels of other serum enzymes (principal); R73.9 Hyperglycemia, unspecified; I10 Essential (primary) hypertension
CPT/HCPCS: 36415; 80053; 80061; 83036; 83721; 84443; 85025

== ENCOUNTER 2020-12-04 15:01 | Emergency (ER) | payer MEDICAID ==
[2020-12-04 15:37] VITALS: BP 132/76
--- NOTE | 2020-12-04 16:32 | XRAY Report ---
PROCEDURE: Shoulder 3 View LT INDICATIONS: trauma, pain with ROM TECHNIQUE: 3 views of the shoulder were acquired. COMPARISON: None. FINDINGS: Bones: No acute fractures or dislocations. No suspicious bony lesions. Visualized ribs appear inta ct. Soft tissues: No suspicious soft tissue calcifications. IMPRESSION: No acute osseous abnormality. If there is clinical concern or persistent symptoms, addit ional imaging such as repeat radiographs or advanced imaging (e.g. CT, MRI) may be helpful for furthe r evaluation. Reviewed by: Kelton Sharma MD on 12/04/2020 4:30 PM PDT Approved by: Kelton Sharma MD on 12/04/2020 4:30 PM PDT Station ID: [id number]
--- NOTE | 2020-12-04 16:51 | ED Physician Documentation ---
PD HPI UPPER EXT INJURY - Stated complaint Stated Complaint: LT SHOULDER INJ - Chief complaint Chief Complaint: Trauma Ext - History obtained from History obtained from: Patient - History of Present Illness Location: Left, Shoulder Type of injury: Fall Where injury occurred: Street Timing - onset: Yesterday Timing - details: Abrupt onset Improved by: Meds Similar symptoms before: Has not had sx before Recently seen: Not recently seen - Additonal information Additional information: This is a 30-year-old man who was skateboarding last night around 5 PM when he had a rock and was lost into the air landing on his left shoulder and elbow. He put a sling on it last night took some ibuprofen which seems to be helping with the pain. It was slightly tingly yesterday but there is no tingling in the hand today. He did not hit his head. He vomited from the pain. He does feel some stretching in the neck. No prior injury. Tetanus vaccine is UTD. Review of Systems Skin: reports: Abrasion (s) (L elbow) Musculoskeletal: reports: Joint pain Neurologic: denies: Numbness, Syncope PD PAST MEDICAL HISTORY - Past Medical History Cardiovascular: Hypertension, High cholesterol Respiratory: Asthma, Other Neuro: None Endocrine/Autoimmune: None GI: GERD, Other : None HEENT: None Psych: Anxiety Musculoskeletal: None Derm: None - Past Surgical History Past Surgical History: Yes HEENT: Tonsil/Adenoidectomy - Present Medications Home Medications: Ambulatory Orders Medication Instructions Recorded Confirmed Citalopram [CeleXA] 10 mg DAILY 12/04/20 12/04/20 Losartan [Cozaar] 1 tab DAILY 12/04/20 12/04/20 - Allergies Allergies/Adverse Reactions: Allergies Allergy/AdvReac Type Severity Reaction Status Date / Time Penicillins Allergy Severe Anaphylaxis Verified 12/04/20 15:37 sulfamethoxazole Allergy Severe Anaphylaxis Verified 12/04/20 15:37 [From ] trimethoprim [From ] Allergy Severe Anaphylaxis Verified 12/04/20 15:37 - Social History Does the pt smoke?: Yes Smoking Status: Current every day smoker Does the pt drink ETOH?: Yes Does the pt have substance abuse?: Yes - Immunizations Immunizations are current?: No Immunizations: TDAP >10years/unknown - POLST Patient has POLST: No PD ED PE NORMAL - Vitals Vital signs reviewed: Yes - General General: Alert and oriented X 3, No acute distress, Well developed/nourished - HEENT HEENT: Atraumatic, PERRL - Extremities Extremities: Other (Patient has pain over the AC joint. No bruising is noted. Limited abduction of the shoulder due to pain. There is an abrasion and some bruising of the left elbow. Free range of motion and tender over that site but no tenderness over the medial or lateral malleolus. He has 2+ radial pulse. Sens) - Neuro Neuro: Alert and oriented X 3, appliance counselor 2-12 intact, No motor deficit, No sensory deficit, Normal speech - Psych Psych: Normal mood Results - Vitals Vitals: Vital Signs - 24 hr 12/04/20 15:34 Temperature 36 C L Heart Rate 93 Respiratory 16 Rate Blood Pressure 132/76 H O2 Saturation 96 Oxygen O2 Source Room air - Rads (name of study) L shoulder Radiology: See rad report, Other (No fx; step-off noted at AC joint) PD MEDICAL DECISION MAKING - ED course ED course: X-rays discussed. Will be placed in a sling. Recommend range of motion exercises. Ice and ibuprofen if needed for pain. He did not need any note for work. Follow-up with his primary care provider if not improving. Departure - Departure Disposition: 01 Home, Self Care Clinical Impression: AC separation, Abrasion of elbow, left, Contusion of elbow, left Condition: Good Instructions: ED Abrasion, ED Sprain AC Joint Follow-Up: GINNY HUBER, MSN, ADMIN ASSISTANT [Primary Care Provider] - Comments: Wear the sling for comfort. You should do range of motion exercises about the shoulder to keep it from stiffening up. Use ice over the distal clavicle. Ibuprofen 3 to 4 tablets every 8 hours with food. Follow-up with your primary care provider if not improving.
== END 2020-12-04 17:40 | disposition home or self-care (01) ==
LOC: ED 15:01
DX: S43.102A Unspecified dislocation of left acromioclavicular joint, initial encounter (principal); S50.312A Abrasion of left elbow, initial encounter; V00.131A Fall from skateboard, initial encounter; Y93.51 Activity, roller skating (inline) and skateboarding; Y92.410 Unspecified street and highway as the place of occurrence of the external cause; F17.200 Nicotine dependence, unspecified, uncomplicated
CPT/HCPCS: 99282; 99283

== ENCOUNTER 2021-02-05 15:06 | Emergency (ER) | payer MEDICAID ==
[2021-02-05 15:19] VITALS: BP 143/82
--- NOTE | 2021-02-05 15:38 | ED Physician Documentation ---
PD HPI UPPER EXT INJURY - Stated complaint Stated Complaint: LT SHOULDER/INJ - Chief complaint Chief Complaint: Ext Problem - History obtained from History obtained from: Patient - History of Present Illness Location: Left, Shoulder Type of injury: Fall (he had fallen to left shoulder month ago and seen in ER, Dx with AC injury. Used sling intermittently with some ROM, but avoided lifting, pulling, etc with the shoulder. He states it has not really improved over the past month. feels slight "grinding" feeling with ROM at times.) Timing - onset: How many months ago (1) Timing - duration: Months (1) Timing - details: Abrupt onset, Still present Worsened by: Moving Associated symptoms: No: Weakness, Numbness, Swelling Recently seen: Emergency Dept (a month ago). No: Clinic (he has tried to get appt with Ortho but was told they did not accept his insurance. He is trying to switch insurance and then get follow up. I told him to call office again to tell them it is ED followup.) Review of Systems Skin: denies: Abrasion (s), Laceration (s) Musculoskeletal: denies: Neck pain, Back pain Neurologic: denies: Focal weakness, Numbness PD PAST MEDICAL HISTORY - Past Medical History Past Medical History: Yes Cardiovascular: Hypertension, High cholesterol Respiratory: Asthma, Other Neuro: None Endocrine/Autoimmune: None GI: GERD, Other : None HEENT: None Psych: Anxiety Musculoskeletal: None Derm: None - Past Surgical History Past Surgical History: Yes HEENT: Tonsil/Adenoidectomy - Present Medications Home Medications: Ambulatory Orders Medication Instructions Recorded Confirmed Citalopram [CeleXA] 10 mg DAILY 12/04/20 12/04/20 Losartan [Cozaar] 1 tab DAILY 12/04/20 12/04/20 HYDROcod/ACETAM 5/325 [[place] 5/325] 1 ea PO Q6H PRN #14 tablet 02/05/21 Meloxicam [Mobic] 7.5 mg PO BID 10 Days #20 tablet 02/05/21 - Allergies Allergies/Adverse Reactions: Allergies Allergy/AdvReac Type Severity Reaction Status Date / Time Penicillins Allergy Severe Anaphylaxis Verified 02/05/21 15:19 sulfamethoxazole Allergy Severe Anaphylaxis Verified 02/05/21 15:19 [From ] trimethoprim [From ] Allergy Severe Anaphylaxis Verified 02/05/21 15:19 - Social History Does the pt smoke?: Yes Smoking Status: Current every day smoker Does the pt drink ETOH?: Yes Does the pt have substance abuse?: Yes - Immunizations Immunizations are current?: No Immunizations: TDAP >10years/unknown - POLST Patient has POLST: No PD ED PE NORMAL - Vitals Vital signs reviewed: Yes - General General: Alert and oriented X 3, Well developed/nourished, Other (appears in pain with ROM of the left shoulder. Guarding it some. ) - Neck Neck: No bony TTP - Derm Derm: Normal color, Warm and dry, No rash - Extremities Extremities: Other (left shoulder is most tender without stepoff at the AC area. ALso tender anterior shoulder. Has pain with abduction of shoulder against resistance. ALso some pain with extension, internal rotation of shoulder suggesting some rotator cuff involvement too. ) - Neuro Neuro: Alert and oriented X 3, No motor deficit, No sensory deficit, Normal speech Results - Vitals Vitals: Vital Signs - 24 hr 02/05/21 15:16 Temperature 35.9 C L Heart Rate 68 Respiratory 18 Rate Blood Pressure 143/82 H O2 Saturation 97 Oxygen O2 Source Room air - Rads (name of study) left shoulder Radiology: Prelim report reviewed (still normal appearance. ), See rad report PD MEDICAL DECISION MAKING - ED course Complexity details: reviewed old records (visit from last month), considered differential (still seems AC injury but also likely some rotator cuff injury. Tender anterior shoulder and I did injection in tendon area with Kenalog and Ropivocaine. ), d/w patient Departure - Departure Disposition: 01 Home, Self Care Clinical Impression: Shoulder pain Qualifiers: Chronicity: unspecified Laterality: left Qualified Code(s): M25.512 - Pain in left shoulder Acromioclavicular separation, type 1 Qualifiers: Encounter type: subsequent encounter Laterality: left Qualified Code(s): S 43.102D - Unspecified dislocation of left acromioclavicular joint, subsequent encounter Rotator cuff strain Qualifiers: Encounter type: subsequent encounter Laterality: left Qualified Code(s): S46.012D - Strain of muscle(s) and tendon(s) of the rotator cuff of left shoulder, subsequent encounter Condition: Stable Record reviewed to determine appropriate education?: Yes Instructions: ED Tendinitis Rotator Cuff Follow-Up: Zafar Farrell MD [Provider Admit Priv/Credential] - Prescriptions: Meloxicam [Mobic] 7.5 mg PO BID 10 Days #20 tablet HYDROcod/ACETAM 5/325 [[place] 5/325] 1 ea PO Q6H PRN #14 tablet PRN Reason: Pain Comments: It would not be too unusual for an injury of the shoulder to take at least a month to heal up. However it would be good that it is doing a bit better at this time. To try to help the symptoms in healing, continue with the sling periodically with gentle range of motion. Perhaps use it for part of the day to rest the shoulder joint to little bit more. You do not have to have it on all the time and in fact better off not having it on all the time. I think you have both the still healing AC strain of the ligaments there but also some element of rotator cuff injury 2. Avoid overhead reaching, push pull, lifting or torsional movement with the shoulder over the next couple of weeks. Use meloxicam anti-inflammatory regularly for the next 10 days with food. To that add Tylenol or pain medicine if needed. Follow-up with your primary care or orthopedics if still not improving over the next week or so. Its likely that your shoulder will start a little bit more at this point being a month or so into it. Follow-up would still be useful they may be able to initiate physical therapy or other modalities. I transmitted your prescriptions to [facility] pharmacy in [place]. I am prescribing a short course of narcotic pain medication for you. These are potentially dangerous and addictive medications that should be used carefully. These medications may constipate you. Take an lmwy-qeg-tkyraki stool softener such as docusate twice daily with plenty of water while taking these medications. If you go 24 hours without a bowel movement, take tzdl-blg-ecntdwx MiraLAX, per package instructions. Do not drink or drive while taking these medications. If you received narcotic or sedating medications while in the emergency department do not drive for 24 hours. Store this medication in a safe, secure place and out of reach of children. It is a violation of federal law to give or sell this medication to another person or to use in a manner other than prescribed. The ED will not refill narcotic prescriptions, including prescriptions lost or stolen. You can dispose of unwanted medications at the [facility]'s office or at several pharmacies such as [facility]. Discharge Date/Time: 02/05/21 16:43
--- NOTE | 2021-02-05 15:49 | XRAY Report ---
PROCEDURE: Shoulder 3 View LT INDICATIONS: L shoulder pain TECHNIQUE: 3 views of the shoulder were acquired. COMPARISON: December 04, 2020. FINDINGS: BONES: No acute, displaced fracture or dislocation. The glenohumeral and acromioclavicular joint spac es are maintained. SOFT TISSUES: No focal abnormality or appreciable pneumothorax. IMPRESSION: 1.No acute osseous abnormality. Reviewed by: Bulmaro Mi MD on 02/05/2021 3:48 PM PST Approved by: Bulmaro Mi MD on 02/05/2021 3:48 PM PST Station ID: [id number]
[2021-02-05] MEDS: IBUPROFEN 600 MG TABLET PO STA (16:25)
[2021-02-05] MEDS: ACETAMINOPHEN 325 MG TABLET PO STA (16:25)
[2021-02-05] MEDS: TRIAMCINOLONE 40 MG/ML VIAL IM STA (16:27)
== END 2021-02-05 16:43 | disposition home or self-care (01) ==
LOC: ED 15:06
DX: S43.102A Unspecified dislocation of left acromioclavicular joint, initial encounter (principal); S46.012A Strain of muscle(s) and tendon(s) of the rotator cuff of left shoulder, initial encounter; W19.XXXA Unspecified fall, initial encounter; I10 Essential (primary) hypertension; F17.200 Nicotine dependence, unspecified, uncomplicated
CPT/HCPCS: 20552; 73030; 99283; A9270

== ENCOUNTER 2021-02-19 13:30 | Outpatient (CLI) | payer MEDICAID ==
--- NOTE | 2021-02-19 16:17 | XRAY Report ---
PROCEDURE: Shoulder 3 View LT INDICATIONS: L SHOULDER PX TECHNIQUE: 4 views of the shoulder were acquired. COMPARISON: Left shoulder radiographs dated 02/05/2021 FINDINGS: No acute fracture. Normal alignment. Scattered subchondral sclerosis and spurring. Joint spaces appea r grossly preserved. Unremarkable soft tissues. IMPRESSION: No acute findings. If the patient's pain or other symptoms persist, consider further anay luation with MRI. Reviewed by: Cezar Shelton MD on 02/19/2021 4:16 PM PST Approved by: Cezar Shelton MD on 02/19/2021 4:16 PM PST Station ID: [id number]
== END 2021-02-19 23:59 | disposition home or self-care (01) ==
LOC: DI.N 13:30
PROVIDERS: ATTEND Physician Assistant
DX: M25.512 Pain in left shoulder (principal)

== ENCOUNTER 2021-08-08 00:58 | Emergency (ER) | payer MEDICAID ==
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
[2021-08-08] MEDS ORDERED: oxyCODONE 5 MG TABLET PO STA (02:14)
[2021-08-08] MEDS ORDERED: BACITRACIN ZINC OINT 1 PACKET TOP STA (02:14)
[2021-08-08] MEDS ORDERED: IBUPROFEN 600 MG TABLET PO STA (02:21)
[2021-08-08 02:33] VITALS: BP 124/72
== END 2021-08-08 02:35 | disposition home or self-care (01) ==
LOC: ED 00:58
DX: F17.200 Nicotine dependence, unspecified, uncomplicated (principal); T20.20XA Burn of second degree of head, face, and neck, unspecified site, initial encounter; T23.232A Burn of second degree of multiple left fingers (nail), not including thumb, initial encounter; X03.0XXA Exposure to flames in controlled fire, not in building or structure, initial encounter; I10 Essential (primary) hypertension
CPT/HCPCS: 99282; 99284; A9270

== ENCOUNTER 2021-09-29 11:31 | Emergency (ER) | payer MEDICAID ==
--- NOTE | 2021-09-29 11:54 | ED Physician Documentation ---
History of Present Illness - Stated complaint Stated Complaint: L RIBS PX - Chief complaint Chief Complaint: Resp - Additonal information Additional information: 31-year-old male presents emergency department for evaluation of left-sided rebecca st and rib wall pain. States it began about 48 hours ago. Describes as a sharp poking burning sensation. Worse with movement but also worse with deep breath and exertion. He does have a history of hypertension as well as tobacco use. He is unsure what the cause of the problem could be, denies any recent strenuous activity or reason for strained muscle. He did have a cough a few weeks ago genesis t he attributed to the cold. It has not fully resolved. No recent fevers. No travel, unilateral leg swelling, history of cancer or immobilization. Review of Systems Constitutional: denies: Fever, Chills Eyes: reports: Reviewed and negative Nose: reports: Reviewed and negative Throat: reports: Reviewed and negative Cardiac: reports: Chest pain / pressure. denies: Palpitations Respiratory: reports: Cough. denies: Dyspnea, Hemoptysis, Wheezing GI: denies: Abdominal Pain, Nausea, Vomiting : reports: Reviewed and negative Musculoskeletal: reports: Other (Reproducible tenderness left lower anterior chest wall. No rash swelling ecchymosis or lesions) Neurologic: reports: Reviewed and negative Psychiatric: reports: Reviewed and negative PD PAST MEDICAL HISTORY - Past Medical History Past Medical History: Yes Cardiovascular: Hypertension, High cholesterol Respiratory: Asthma, Other Neuro: None Endocrine/Autoimmune: None GI: GERD, Other : None HEENT: None Psych: Depression, Anxiety Musculoskeletal: None Derm: None - Past Surgical History Past Surgical History: Yes HEENT: Tonsil/Adenoidectomy - Present Medications Home Medications: Ambulatory Orders Medication Instructions Recorded Confirmed Citalopram [CeleXA] 10 mg ORAL DAILY 12/04/20 09/29/21 Losartan [Cozaar] 50 mg ORAL DAILY 12/04/20 09/29/21 - Allergies Allergies/Adverse Reactions: Allergies Allergy/AdvReac Type Severity Reaction Status Date / Time Penicillins Allergy Severe Anaphylaxis Verified 09/29/21 11:35 sulfamethoxazole Allergy Severe Anaphylaxis Verified 09/29/21 11:35 [From ] trimethoprim [From ] Allergy Severe Anaphylaxis Verified 09/29/21 11:35 - Social History Does the pt smoke?: Yes Smoking Status: Current every day smoker Does the pt drink ETOH?: Yes ETOH Use: Beer Does the pt have substance abuse?: Yes Substance Use and Type: Marijuana - Immunizations Immunizations are current?: No Immunizations: TDAP >10years/unknown - POLST Patient has POLST: No PD ED PE NORMAL - General General: Alert and oriented X 3, No acute distress. No: Well developed/nourished (Obese) - HEENT HEENT: Atraumatic, Moist mucous membranes, Pharynx benign - Neck Neck: Supple, no meningeal sign, No adenopathy - Cardiac Cardiac: RRR, No murmur, Strong equal pulses - Respiratory Respiratory: No respiratory distress. No: Clear bilaterally (generalized rhonchi) - Abdomen Abdomen: Normal bowel sounds, Soft - Derm Derm: Normal color, Warm and dry - Extremities Extremities: No deformity, No tenderness to palpate, Normal ROM s pain - Neuro Neuro: Alert and oriented X 3, sign out clerk 2-12 intact Eye Opening: Spontaneous Motor: Obeys Commands Results - Vitals Vitals: Vital Signs - 24 hr 09/29/21 09/29/21 11:35 12:37 Temperature 36.4 C L Heart Rate 67 58 L Respiratory 18 17 Rate Blood Pressure 148/90 H 144/90 H O2 Saturation 97 95 Oxygen O2 Source Room air - EKG (time done) 1159 Rate: Rate (enter#) (72) Rhythm: NSR [place]: Normal Intervals: Normal GA QRS: Normal Ischemia: Normal ST segments Compare to prior EKG: Unchanged from prior EKG Computer interpretation: Agree with computer - Labs Labs: Laboratory Tests 09/29/21 09/29/21 09/29/21 11:56 11:56 11:56 WBC 6.5 RBC 5.43 Hgb 16.6 Hct 49.6 MCV 91.3 MCH 30.6 MCHC 33.5 RDW 12.9 Plt Count 231 MPV 9.2 Neut # (Auto) 3.3 Lymph # (Auto) 2.5 [place] # (Auto) 0.6 Eos # (Auto) 0.1 Baso # (Auto) 0.1 Absolute Nucleated RBC 0.00 Nucleated RBC % 0.0 Sodium 136 Potassium 4.0 Chloride 103 Carbon Dioxide 25 Anion Gap 8.0 BUN 18 Creatinine 1.0 Estimated GFR (MDRD) 87 L Glucose 103 H Calcium 9.1 Troponin I High Sens 3.3 - Rads (name of study) cxr Radiology: EMP read indepedently (no acute cardiopulmonary process) PD MEDICAL DECISION MAKING - ED course Complexity details: reviewed results, re-evaluated patient, considered differential, d/w patient ED course: 31 year old male with 2 days left chest wall tenderness. - cough 2 weeks ago; some rhonchi on exam. CXR negative for pna - screening ekg and biomarkers negative. Labs unremarkable - PERC negative - reproducible chest wall tenderness; likely chostochondritis. improved with toradol Departure - Departure Disposition: 01 Home, Self Care Clinical Impression: Chest wall pain Condition: Stable Record reviewed to determine appropriate education?: Yes Instructions: ED Chest Pain Costochondritis Comments: Kelton the chest XR was normal. Your labs and EKG were normal. Try taking 600 mg of motrin with food two times daily for chest wall pain. IF not better over the next weeks, you develop fevers or have any fainting episodes, then return to the ED Discharge Date/Time: 09/29/21 13:02
[2021-09-29 12:03] LABS: BASOPHILS # (AUTO) 0.1 10^3/uL (0.0-0.1); BASOPHILS % (AUTO) 0.8 %; EOSINOPHILS # (AUTO) 0.1 10^3/uL (0.0-0.7); EOSINOPHILS % (AUTO) 0.9 %; HCT - HEMATOCRIT 49.6 % (42.0-52.0); HGB - HEMOGLOBIN 16.6 g/dL (14.0-18.0); LYMPHOCYTES # (AUTO) 2.5 10^3/uL (1.5-3.5); LYMPHOCYTES % (AUTO) 37.9 %; MEAN CORPUSCULAR HEMOGLOBIN 30.6 pg (27.0-31.0); MEAN CORPUSCULAR HGB CONC 33.5 g/dL (32.0-36.0); MEAN CORPUSCULAR VOLUME 91.3 fL (80.0-94.0); MEAN PLATELET VOLUME 9.2 fL (7.4-11.4); MONOCYTES # (AUTO) 0.6 10^3/uL (0.0-1.0); MONOCYTES % (AUTO) 9.6 %; NEUTROPHILS # (AUTO) 3.3 10^3/uL (1.5-6.6); NEUTROPHILS % (AUTO) 50.6 %; PLT - PLATELET COUNT 231 10^3/uL (130-450); RED BLOOD COUNT 5.43 10^6/uL (4.70-6.10); RED CELL DISTRIBUTION WIDTH 12.9 % (12.0-15.0); WHITE BLOOD COUNT 6.5 x10^3/uL (4.8-10.8)
[2021-09-29 12:15] LABS: CALCIUM 9.1 mg/dL (8.5-10.3)
[2021-09-29] MEDS ORDERED: KETOROLAC 30 MG/ML VIAL IM STA (12:47)
[2021-09-29 12:54] VITALS: BP 144/90
--- NOTE | 2021-09-29 13:26 | XRAY Report ---
PROCEDURE: Chest 1 View X-Ray INDICATIONS: chest pain COMMENTS: Chest pain, "burning" today PRIORS: [id number] TECHNIQUE: One view of the chest was acquired. COMPARISON: 01/16/2020 FINDINGS: Surgical changes and devices: None. Lungs and pleura: No pleural effusions or pneumothorax. Lungs are clear. Mediastinum: Mediastinal contours appear normal. Heart size is normal. Bones and chest wall: No suspicious bony lesions. Overlying soft tissues appear unremarkable. IMPRESSION: No acute cardiopulmonary abnormality Reviewed by: Gustavo Andrews on 09/29/2021 1:24 PM PDT Approved by: Gustavo Andrews on 09/29/2021 1:24 PM PDT Station ID: [id number]
== END 2021-09-29 13:02 | disposition home or self-care (01) ==
LOC: ED 11:31
DX: R07.89 Other chest pain (principal); I10 Essential (primary) hypertension; Z72.0 Tobacco use
CPT/HCPCS: 36415; 80048; 84484; 85025; 93005; 99283; 99284

== ENCOUNTER 2021-11-21 05:04 | Outpatient (CLI) | payer MEDICAID | END 2021-11-21 05:05 | disposition critical access hospital (66) | LOC: EMS 05:04 | DX: Z04.3 Encounter for examination and observation following other accident (principal) | CPT/HCPCS: A0425; A0429; A0999 ==

== ENCOUNTER 2021-11-21 05:23 | Emergency (ER) | payer MEDICAID ==
[2021-11-21] MEDS ORDERED: SODIUM CHLORIDE 0.9% 1,000 ML IV STA (06:07)
[2021-11-21 07:00] LABS: ALBUMIN 4.5 g/dL (3.2-5.5); ALBUMIN/GLOBULIN RATIO 1.6 (1.0-2.2); BILIRUBIN,TOTAL 0.5 mg/dL (0.2-1.0); CALCIUM 8.8 mg/dL (8.5-10.3); CREATININE 1.1 mg/dL (0.6-1.2); ETOH - ETHANOL 145.2 mg/dL; POTASSIUM 3.9 mmol/L (3.5-5.0); TOTAL PROTEIN 7.4 g/dL (6.7-8.2)
--- NOTE | 2021-11-21 07:30 | ED Physician Documentation ---
History of Present Illness - Stated complaint Stated Complaint: ETOH, FELL, HEADACHE - Chief complaint Chief Complaint: General - History obtained from History obtained from: EMS, Other (patient) - History of Present Illness Timing: Unknown - Additonal information Additional information: BIBA after being found on ground by police in public. Patient is too altered at the time of this evaluation to provide reliable HPI/ROS. Review of Systems Unable to obtain: [facility] PD PAST MEDICAL HISTORY - Past Medical History Past Medical History: Yes Cardiovascular: Hypertension, High cholesterol Respiratory: Asthma, Other Neuro: None Endocrine/Autoimmune: None GI: GERD, Other : None HEENT: None Psych: Depression, Anxiety Musculoskeletal: None Derm: None - Past Surgical History Past Surgical History: Yes HEENT: Tonsil/Adenoidectomy - Present Medications Home Medications: Ambulatory Orders Medication Instructions Recorded Confirmed Citalopram [CeleXA] 10 mg ORAL DAILY 12/04/20 11/05/21 Losartan [Cozaar] 50 mg ORAL DAILY 12/04/20 11/05/21 - Allergies Allergies/Adverse Reactions: Allergies Allergy/AdvReac Type Severity Reaction Status Date / Time Penicillins Allergy Severe Anaphylaxis Verified 11/05/21 05:07 sulfamethoxazole Allergy Severe Anaphylaxis Verified 11/05/21 05:07 [From ] trimethoprim [From ] Allergy Severe Anaphylaxis Verified 11/05/21 05:07 - Social History Does the pt smoke?: Yes Smoking Status: Current every day smoker Does the pt drink ETOH?: Yes Does the pt have substance abuse?: Yes - Immunizations Immunizations are current?: No Immunizations: TDAP >10years/unknown - POLST Patient has POLST: No PD ED PE NORMAL - Vitals Vital signs reviewed: Yes - General General: No acute distress, Well developed/nourished, Other (awake, confused, speech is slurred and he answers few questions and with odd or unintelligible answers) - HEENT HEENT: Atraumatic, PERRL, EOMI, Moist mucous membranes - Neck Neck: No bony TTP - Cardiac Cardiac: RRR, No murmur - Respiratory Respiratory: No respiratory distress, Clear bilaterally - Extremities Extremities: No deformity, No tenderness to palpate, Normal ROM s pain Results - Vitals Vitals: Oxygen O2 Source Room air - Labs Labs: Laboratory Tests 11/21/21 11/21/21 11/21/21 05:50 07:34 09:58 WBC 7.5 RBC 5.11 Hgb 15.9 Hct 46.7 MCV 91.4 MCH 31.1 H MCHC 34.0 RDW 12.5 Plt Count 228 MPV 9.2 Neut # (Auto) 4.0 Lymph # (Auto) 2.8 [place] # (Auto) 0.5 Eos # (Auto) 0.1 Baso # (Auto) 0.1 Absolute Nucleated RBC 0.00 Nucleated RBC % 0.0 Sodium 138 Potassium 3.9 Chloride 103 Carbon Dioxide 26 Anion Gap 9.0 BUN 12 Creatinine 1.1 Estimated GFR (MDRD) 78 L Glucose 102 H Calcium 8.8 Total Bilirubin 0.5 AST 20 ALT 29 Alkaline Phosphatase 35 L Total Protein 7.4 Albumin 4.5 Globulin 2.9 Albumin/Globulin Ratio 1.6 Lipase 80 H Urine Color YELLOW Urine Clarity CLEAR Urine pH 6.0 Ur Specific [place] 1.025 Urine Protein NEGATIVE Urine Glucose (UA) NEGATIVE Urine Ketones NEGATIVE Urine Occult Blood NEGATIVE Urine Nitrite NEGATIVE Urine Bilirubin NEGATIVE Urine Urobilinogen 0.2 (NORMAL) Ur Leukocyte Esterase NEGATIVE Ur Microscopic Review NOT INDICATED Urine Culture Comments NOT INDICATED Urine Opiates Screen NEGATIVE Ur Oxycodone Screen NEGATIVE Urine Methadone Screen NEGATIVE Ur Propoxyphene Screen NEGATIVE Ur Barbiturates Screen NEGATIVE Ur Tricyclics Screen NEGATIVE Ur Phencyclidine Scrn NEGATIVE Ur Amphetamine Screen NEGATIVE U Methamphetamines Scrn NEGATIVE U Benzodiazepines Scrn NEGATIVE Urine Cocaine Screen NEGATIVE U Cannabinoids Screen POSITIVE H Ethyl Alcohol 145.2 - Rads (name of study) CT head Radiology: Prelim report reviewed, See rad report PD MEDICAL DECISION MAKING - ED course Complexity details: reviewed old records, reviewed results, re-evaluated patient, considered differential, d/w patient ED course: patient presents with AMS with EMS report that patient said he had struck his head against a mailbox. CTH is unremarkable and his mentation is improving at end of my shift, care of patient turned over to oncoming ED physician pending test results and improved mentation Departure - Departure Disposition: 01 Home, Self Care Clinical Impression: Alcohol intoxication, Closed head injury, Marijuana use Condition: Good Instructions: ED Alcohol Intoxication, ED Head Injury Closed Follow-Up: your,doctor in 3 days for recheck [Other] Comments: Please follow-up with your doctor for further care. Please return if you worsen. Please refrain from alcohol and marijuana use. Your head CT and cervical spine CT do not show any acute abnormalities today. Discharge Date/Time: 11/21/21 12:45
[2021-11-21 07:48] LABS: BASOPHILS # (AUTO) 0.1 10^3/uL (0.0-0.1); BASOPHILS % (AUTO) 0.8 %; EOSINOPHILS # (AUTO) 0.1 10^3/uL (0.0-0.7); EOSINOPHILS % (AUTO) 1.6 %; HCT - HEMATOCRIT 46.7 % (42.0-52.0); HGB - HEMOGLOBIN 15.9 g/dL (14.0-18.0); LYMPHOCYTES # (AUTO) 2.8 10^3/uL (1.5-3.5); LYMPHOCYTES % (AUTO) 37.6 %; MEAN CORPUSCULAR HEMOGLOBIN 31.1 pg (27.0-31.0); MEAN CORPUSCULAR VOLUME 91.4 fL (80.0-94.0); MEAN PLATELET VOLUME 9.2 fL (7.4-11.4); MONOCYTES # (AUTO) 0.5 10^3/uL (0.0-1.0); MONOCYTES % (AUTO) 7.1 %; NEUTROPHILS % (AUTO) 52.6 %; PLT - PLATELET COUNT 228 10^3/uL (130-450); RED BLOOD COUNT 5.11 10^6/uL (4.70-6.10); RED CELL DISTRIBUTION WIDTH 12.5 % (12.0-15.0); WHITE BLOOD COUNT 7.5 x10^3/uL (4.8-10.8)
--- NOTE | 2021-11-21 08:42 | CT Report ---
PROCEDURE: HEAD WO INDICATIONS: head injury, AMS TECHNIQUE: Noncontrast 4.5 mm thick angled axial sections acquired from the foramen magnum to the vertex. For r adiation dose reduction, the following was used: automated exposure control, adjustment of mA and/or kV according to patient size. COMPARISON: None. FINDINGS: Image quality: Excellent. CSF spaces: Basal cisterns are patent. No extra-axial fluid collections. Ventricles are normal in size and shape. Brain: No midline shift. No intracranial masses or hemorrhage. Perla-white matter interface is norm al. Skull and face: Calvarium and visualized facial bones are intact, without suspicious lesions. Sinuses: Visualized sinuses and mastoids are clear. IMPRESSION: 1. No acute intracranial process. The above findings are concordant with preliminary report. Reviewed by: Elle Morales MD on 11/21/2021 8:41 AM PDT Approved by: Elle Morales MD on 11/21/2021 8:41 AM PDT Station ID: [id number]
--- NOTE | 2021-11-21 09:55 | CT Report ---
PROCEDURE: CERVICAL SPINE WO INDICATIONS: fall, neck pain TECHNIQUE: Noncontrast 3 mm thick sections acquired from the skull base to the T4 level. Sagittal and coronal r eformats were then constructed. For radiation dose reduction, the following was used: automated exp osure control, adjustment of mA and/or kV according to patient size. COMPARISON: None. FINDINGS: Image quality: Excellent. Bones: No fractures or dislocations. Visualized superior ribs are intact. Soft tissues: Prevertebral soft tissues are normal in thickness. No paravertebral hematomas. No ap ical pneumothoraces. IMPRESSION: No visualized fracture or dislocation. Reviewed by: Elle Morales MD on 11/21/2021 9:54 AM PDT Approved by: Elle Morales MD on 11/21/2021 9:54 AM PDT Station ID: [id number]
[2021-11-21 10:04] LABS: MUDS CUTOFF CONCENTRATIONS CUTOFF CONC BELOW:
[2021-11-21 10:07] LABS: BILIRUBIN,URINE NEGATIVE (NEGATIVE); GLUCOSE, URINE (UA) NEGATIVE (NEGATIVE); KETONES,URINE (UA) NEGATIVE (NEGATIVE); LEUKOCYTE ESTERASE, URINE NEGATIVE (NEGATIVE); NITRITE,URINE NEGATIVE (NEGATIVE); OCCULT BLOOD,URINE NEGATIVE (NEGATIVE); PROTEIN,URINE NEGATIVE (NEGATIVE); UROBILINOGEN,URINE 0.2 (NORMAL) E.U./dL (NORMAL)
[2021-11-21 10:08] LABS: CLARITY,URINE CLEAR (CLEAR)
[2021-11-21 10:20] LABS: AMPHETAMINE SCREEN,URINE NEGATIVE (NEGATIVE); BARBITURATE SCREEN,UR NEGATIVE (NEGATIVE); BENZODIAZEPINES SCREEN, URINE NEGATIVE (NEGATIVE); COCAINE SCREEN URINE NEGATIVE (NEGATIVE); METHADONE SCREEN, URINE NEGATIVE (NEGATIVE); METHAMPHETAMINES SCREEN, URINE NEGATIVE (NEGATIVE); OPIATE SCREEN, URINE NEGATIVE (NEGATIVE); OXYCODONE SCREEN, URINE NEGATIVE (NEGATIVE); PROPOXYPHENE SCREEN, URINE NEGATIVE (NEGATIVE); THC CANNABINOID SCREEN, URINE POSITIVE (NEGATIVE); TRICYCLIC ANTIDEPRESSANT,URINE NEGATIVE (NEGATIVE)
--- NOTE | 2021-11-21 12:33 | ED Physician Documentation ---
ED Addendum - Addendum Addendum: 11/21/21 12:34 Patient gradually sobered in the emergency department. No acute findings on head CT or cervical spine CT. He is ambulating without any difficulty under his own power. Feels much better after sleeping. Recommend that he refrain from alcohol and marijuana use. Patient counseled regarding signs and symptoms for which I believe and urgent re-evaluation would be necessary. Patient with good understanding of and agreement to plan and is comfortable going home at this time This document was made in part using voice recognition software. While efforts are made to proofread this document, sound alike and grammatical errors may occur. Departure - Departure Disposition: 01 Home, Self Care Clinical Impression: Marijuana use Alcohol intoxication Qualifiers: Complication of substance-induced condition: uncomplicated Qualified Code(s): F10.920 - Alcohol use, unspecified with intoxication, uncomplicated Closed head injury Qualifiers: Encounter type: initial encounter Qualified Code(s): S09.90XA - Unspecified injury of head, initial encounter Condition: Good Instructions: ED Alcohol Intoxication, ED Head Injury Closed Follow-Up: your,doctor in 3 days for recheck [Other] Comments: Please follow-up with your doctor for further care. Please return if you worsen. Please refrain from alcohol and marijuana use. Your head CT and cervical spine CT do not show any acute abnormalities today.
[2021-11-21 12:46] VITALS: BP 119/77
== END 2021-11-21 12:45 | disposition home or self-care (01) ==
LOC: ED 05:23
DX: F10.129 Alcohol abuse with intoxication, unspecified (principal); Y90.6 Blood alcohol level of 120-199 mg/100 ml; S09.90XA Unspecified injury of head, initial encounter; W19.XXXA Unspecified fall, initial encounter; F17.200 Nicotine dependence, unspecified, uncomplicated
CPT/HCPCS: 36415; 80053; 80306; 80320; 81001; 81003; 83690; 85025; 87086; 96360; 96361; 99281

== ENCOUNTER 2022-08-29 01:17 | Outpatient (CLI) | payer MEDICAID | END 2022-08-29 21:27 | disposition critical access hospital (66) | LOC: EMS 01:17 | DX: Z04.6 Encounter for general psychiatric examination, requested by authority (principal); R45.851 Suicidal ideations; R46.89 Other symptoms and signs involving appearance and behavior; Z78.1 Physical restraint status | CPT/HCPCS: A0425; A0429; A0999 ==

== ENCOUNTER 2022-08-29 01:37 | Emergency (ER) | payer MEDICAID ==
[2022-08-29] MEDS ORDERED: LORazepam 2 MG/ML VIAL IM STA (01:40)
[2022-08-29] MEDS ORDERED: diphenhydrAMINE INJ 50 MG/ML VIAL IM STA (01:40)
[2022-08-29] MEDS ORDERED: HALOPERIDOL 5 MG/ML VIAL IM STA ×2 (01:40)
[2022-08-29] MEDS ORDERED: diphenhydrAMINE INJ 50 MG/ML VIAL ONE (01:44)
[2022-08-29] MEDS ORDERED: HALOPERIDOL 5 MG/ML VIAL ONE (01:44)
[2022-08-29] MEDS ORDERED: LORazepam 2 MG/ML VIAL ONE (01:44)
--- NOTE | 2022-08-29 01:46 | ED Physician Documentation ---
History of Present Illness - Stated complaint Stated Complaint: MHE - Additonal information Additional information: Patient is 32-year-old male presenting to the emergency department brought in by EMS for suicidal ideation. EMS provide history that patient was found near [facility] trying to jump into traffic. He made multiple statements of self-harm to police. He required restraint by EMS prior to arrival. On arrival here he is acutely intoxicated. He is making statements of self-harm such as "this is bullshit why can I snapped my own neck" as well as "have you ever jumped into traffic before, I bet it is a gannon". He does report that he drinks daily and also states that he has used cocaine recently. History is limited Review of Systems Unable to obtain: Intoxicated, Other (Psychiatric disturbance) PD PAST MEDICAL HISTORY - Past Medical History Cardiovascular: Hypertension, High cholesterol Respiratory: Asthma, Other Neuro: None Endocrine/Autoimmune: None GI: GERD, Other : None HEENT: None Psych: Depression, Anxiety Musculoskeletal: None Derm: None - Past Surgical History Past Surgical History: Yes HEENT: Tonsil/Adenoidectomy - Present Medications Home Medications: Ambulatory Orders Medication Instructions Recorded Confirmed No Known Home Medications 08/29/22 08/29/22 - Allergies Allergies/Adverse Reactions: Allergies Allergy/AdvReac Type Severity Reaction Status Date / Time Penicillins Allergy Severe Anaphylaxis Verified 08/29/22 02:00 sulfamethoxazole Allergy Severe Anaphylaxis Verified 08/29/22 02:00 [From ] trimethoprim [From ] Allergy Severe Anaphylaxis Verified 08/29/22 02:00 - Social History Does the pt smoke?: Yes Smoking Status: Current every day smoker Does the pt drink ETOH?: Yes Does the pt have substance abuse?: Yes - Immunizations Immunizations are current?: No Immunizations: TDAP >10years/unknown - POLST Patient has POLST: No PD ED PE NORMAL - Vitals Vital signs reviewed: Yes (Low level tachycardia) - General General: Other (Patient smells strongly of alcohol. Is otherwise disheveled.) - HEENT HEENT: Atraumatic, PERRL - Neck Neck: Supple, no meningeal sign - Cardiac Cardiac: RRR - Respiratory Respiratory: No respiratory distress - Abdomen Abdomen: Non tender - Male Male : Deferred - Rectal Rectal: Deferred - Derm Derm: Normal color - Extremities Extremities: No deformity - Neuro Neuro: licensed clinical social worker 2-12 intact, No motor deficit, Normal speech Eye Opening: Spontaneous Motor: Obeys Commands (Intermittently obeys commands) Verbal: Oriented GCS Score: 15 Results - Vitals Vitals: Vital Signs - 24 hr 08/29/22 08/29/22 08/29/22 01:37 01:40 01:55 Temperature 36 C L Heart Rate 106 H 86 85 Respiratory 20 22 Rate Blood Pressure O2 Saturation 97 22 L If not protocol 96 99 : Oxygen Flow, liters/minute 08/29/22 08/29/22 08/29/22 02:24 02:25 02:32 Temperature 35.9 C L Heart Rate 89 90 86 Respiratory 16 16 16 Rate Blood Pressure 108/63 108/63 108/63 O2 Saturation 93 93 95 If not protocol 2 : Oxygen Flow, liters/minute 08/29/22 08/29/22 08/29/22 02:33 02:43 03:16 Temperature Heart Rate 106 H 91 91 Respiratory 38 H 16 16 Rate Blood Pressure 115/66 114/58 L 124/57 L O2 Saturation 95 97 94 If not protocol 4 4 4 : Oxygen Flow, liters/minute 08/29/22 04:46 Temperature Heart Rate 81 Respiratory 17 Rate Blood Pressure 93/53 L O2 Saturation 93 If not protocol 4 : Oxygen Flow, liters/minute Oxygen O2 Source Nasal cannula - EKG (time done) 0213 EKG releavant findings:: EKG personally interpreted by author of this note. Relevant findings are: Sinus rhythm with rate 88 bpm. Normal axis. Normal DC, QRS, QTc intervals. No ST segment elevations or T wave inversions. - Labs Labs: Laboratory Tests 08/29/22 08/29/22 08/29/22 01:19 02:24 02:24 WBC 8.0 RBC 5.43 Hgb 16.9 Hct 50.2 MCV 92.4 MCH 31.1 H MCHC 33.7 RDW 12.5 Plt Count 212 MPV 9.4 Neut # (Auto) 4.6 Lymph # (Auto) 2.7 [place] # (Auto) 0.6 Eos # (Auto) 0.1 Baso # (Auto) 0.0 Absolute Nucleated RBC 0.00 Nucleated RBC % 0.0 PT INR Sodium 143 Potassium 3.5 Chloride 109 Carbon Dioxide 24 Anion Gap 10.0 BUN 9 Creatinine 1.2 Estimated GFR (MDRD) 70 L Glucose 120 H Calcium 8.1 L Magnesium 2.1 Total Bilirubin 0.4 AST 29 ALT 37 Alkaline Phosphatase 58 Total Creatine Kinase 461 H Total Protein 6.5 L Albumin 4.0 Globulin 2.5 Albumin/Globulin Ratio 1.6 Lipase 39 TSH Salicylates < 6.0 Ethyl Alcohol 259.8 SARS-CoV-2 (PCR) NOT DETECTED 08/29/22 08/29/22 02:24 02:37 WBC RBC Hgb Hct MCV MCH MCHC RDW Plt Count MPV Neut # (Auto) Lymph # (Auto) [place] # (Auto) Eos # (Auto) Baso # (Auto) Absolute Nucleated RBC Nucleated RBC % PT 10.1 INR 0.9 Sodium Potassium Chloride Carbon Dioxide Anion Gap BUN Creatinine Estimated GFR (MDRD) Glucose Calcium Magnesium Total Bilirubin AST ALT Alkaline Phosphatase Total Creatine Kinase Total Protein Albumin Globulin Albumin/Globulin Ratio Lipase TSH 1.01 Salicylates Ethyl Alcohol SARS-CoV-2 (PCR) PD Medical Decision Making - ED course Complexity details: reviewed old records, re-evaluated patient, considered differential ED course: Patient is 32-year-old male brought in via EMS in four-point restraints with active suicidal ideation and alcohol intoxication. Per EMS history patient was outside trying to do jump into traffic. He reported that he was doing this to try to kill himself. He made suicidal statements on arrival to the emergency department. It required a great deal of redirection to try to get him to stay in his gurney as he continually tried to exit his gurney and was generally acting in a manner that was both disorganized and unsafe to himself as well as staff. He was given Haldol, Benadryl, Ativan on arrival and was briefly placed in four-point restraints however these were discontinued after approximately 2 and half hours in the department "(All restraints removed by 0315 hrs.). His EKG is unremarkable. His lab work demonstrates a minimal elevation in CK. He was given a liter of IV hydration as well as folate and thiamine supplements. Reevaluated multiple times and found to be resting comfortably and in no acute distress. At this time waiting for clinical sobriety. We will be signing out to the oncoming physician, please see their documentation for further detail.
--- NOTE | 2022-08-29 01:48 | ED Physician Documentation ---
Restraint [id number] - Immediate Situation Face to Face Evaluation Date: 08/29/22 Face to Face Evaluation Time: 01:47 Restraint Classification: Violent, chemical w/ physical hold Restraint Type: Locked extremity - Patient's Reaction & Behaviors Safety: Non-compliant, Unable to Follow Commands Verbal: Demanding, Swearing Harm: Potential harm to self, Potential harm to others, Verbalizes intent to harm Physical: Fighting restraints - Behavioral Condition Attitude: Guarded Behavior: Belligerent Orientation: Person, Disoriented to all Mood: Labile - Evaluation Review of Systems: Unable to obtain secondary to intoxication/altered mental status and psychiatric disturbance Pertinent History/Illicit Drugs/Medications/Results: History longstanding alcohol abuse - Plan Need to Continue or Terminate Violent or Chemical Restraint: Continue for now
[2022-08-29] MEDS ORDERED: THIAMINE INJ 100 MG, FOLIC ACID INJ 1 MG in SODIUM CHLORIDE 0.9% 1,000 ML IV STA (02:25)
[2022-08-29 02:34] LABS: BASOPHILS % (AUTO) 0.5 %; EOSINOPHILS # (AUTO) 0.1 10^3/uL (0.0-0.7); EOSINOPHILS % (AUTO) 0.6 %; HCT - HEMATOCRIT 50.2 % (42.0-52.0); HGB - HEMOGLOBIN 16.9 g/dL (14.0-18.0); LYMPHOCYTES # (AUTO) 2.7 10^3/uL (1.5-3.5); LYMPHOCYTES % (AUTO) 33.8 %; MEAN CORPUSCULAR HEMOGLOBIN 31.1 pg (27.0-31.0); MEAN CORPUSCULAR HGB CONC 33.7 g/dL (32.0-36.0); MEAN CORPUSCULAR VOLUME 92.4 fL (80.0-94.0); MEAN PLATELET VOLUME 9.4 fL (7.4-11.4); MONOCYTES # (AUTO) 0.6 10^3/uL (0.0-1.0); MONOCYTES % (AUTO) 7.2 %; NEUTROPHILS # (AUTO) 4.6 10^3/uL (1.5-6.6); NEUTROPHILS % (AUTO) 57.6 %; PLT - PLATELET COUNT 212 10^3/uL (130-450); RED BLOOD COUNT 5.43 10^6/uL (4.70-6.10); RED CELL DISTRIBUTION WIDTH 12.5 % (12.0-15.0)
[2022-08-29 02:49] LABS: INR 0.9 (0.8-1.2); PT - PROTHROMBIN TIME 10.1 secs (9.9-12.6)
[2022-08-29 02:56] LABS: ALBUMIN/GLOBULIN RATIO 1.6 (1.0-2.2); ALKALINE PHOSPHATASE 58 IU/L (42-121); ALT ALANINE AMINOTRANSFERASE 37 IU/L (10-60); AST ASPARTATE AMINOTRANSFERASE 29 IU/L (10-42); BILIRUBIN,TOTAL 0.4 mg/dL (0.2-1.0); BUN - BLOOD UREA NITROGEN 9 mg/dL (6-20); CALCIUM 8.1 mg/dL (8.5-10.3); CARBON DIOXIDE - CO2 24 mmol/L (21-32); CHLORIDE 109 mmol/L (101-111); CK- CREATINE KINASE 461 IU/L (22-269); CREATININE 1.2 mg/dL (0.6-1.2); ETOH - ETHANOL 259.8 mg/dL; GFR - MDRD 70 (>89); GLUCOSE 120 mg/dL (70-100); LIPASE 39 U/L (22-51); MAGNESIUM 2.1 mg/dL (1.7-2.8); POTASSIUM 3.5 mmol/L (3.5-5.0); SALICYLATE < 6.0 mg/dL; SODIUM 143 mmol/L (135-145); TOTAL PROTEIN 6.5 g/dL (6.7-8.2)
[2022-08-29] MEDS ORDERED: FOLIC ACID 5 MG/1 ML 10ML MDV ONE (02:56)
[2022-08-29] MEDS ORDERED: THIAMINE 100 MG/1 ML 2 ML MDV ONE (02:56)
[2022-08-29 07:33] LABS: MUDS CUTOFF CONCENTRATIONS CUTOFF CONC BELOW:
[2022-08-29 07:54] LABS: AMPHETAMINE SCREEN,URINE NEGATIVE (NEGATIVE); BARBITURATE SCREEN,UR NEGATIVE (NEGATIVE); BENZODIAZEPINES SCREEN, URINE NEGATIVE (NEGATIVE); COCAINE SCREEN URINE NEGATIVE (NEGATIVE); METHADONE SCREEN, URINE NEGATIVE (NEGATIVE); METHAMPHETAMINES SCREEN, URINE NEGATIVE (NEGATIVE); OPIATE SCREEN, URINE NEGATIVE (NEGATIVE); OXYCODONE SCREEN, URINE NEGATIVE (NEGATIVE); PROPOXYPHENE SCREEN, URINE NEGATIVE (NEGATIVE); THC CANNABINOID SCREEN, URINE POSITIVE (NEGATIVE); TRICYCLIC ANTIDEPRESSANT,URINE NEGATIVE (NEGATIVE)
[2022-08-29 11:16] VITALS: BP 108/62
--- NOTE | 2022-08-29 12:16 | ED Physician Documentation ---
ED Addendum - Addendum Addendum: 08/29/22 12:14 Kelton Beasley is a 32-year-old male who is living with his uncle and nephew. Last night his nephew was graduated and he began to drink more heavily than usual he states that he had some locos and some rum. He presented to the emergency department intoxicated and suicidal he did require restraint at some point he is now sober feels remorseful and indicates that he has no suicidal ideation at all. He has forward thinking and indicates that he has had this happen to him previously when he drinks. He has no specific plans for suicide and does not have guns in his home. He would like to go home this morning. 08/29/22 16:58 Impression: acute alcohol intoxication, suicidal ideation. Plan: patient is discharged to home to follow-up with his primary care doctor and given instructions for depression and alcohol intoxication.
== END 2022-08-29 12:39 | disposition home or self-care (01) ==
LOC: EDBD → EDUNIT# → ED 01:37
DX: R45.851 Suicidal ideations (principal); F10.129 Alcohol abuse with intoxication, unspecified; Y90.8 Blood alcohol level of 240 mg/100 ml or more; I10 Essential (primary) hypertension; F17.200 Nicotine dependence, unspecified, uncomplicated; Z78.1 Physical restraint status; Z20.822 Contact with and (suspected) exposure to COVID-19
CPT/HCPCS: 36415; 80053; 80306; 80320; 80329; 82550; 83690; 83735; 84443; 85025; 85610; 87635; 93005; 96365; 96366; 96372; 99284; 99285; J1200; J2060; J3411

== ENCOUNTER 2022-09-03 02:22 | Outpatient (CLI) | payer MEDICAID | END 2022-09-03 02:30 | disposition critical access hospital (66) | LOC: EMS 02:22 | DX: Z04.6 Encounter for general psychiatric examination, requested by authority (principal); R45.851 Suicidal ideations; F10.90 Alcohol use, unspecified, uncomplicated; Z59.00 Homelessness unspecified | CPT/HCPCS: A0425; A0429; A0999 ==

== ENCOUNTER 2022-09-03 02:37 | Emergency (ER) | payer MEDICAID ==
--- NOTE | 2022-09-03 02:44 | ED Physician Documentation ---
History of Present Illness - Stated complaint Stated Complaint: SI, ETOH - History obtained from History obtained from: Patient, EMS, Police ([facility] paperwork on chart) - Additonal information Additional information: 32-year-old man with history of methamphetamine and alcohol abuse presents brought in by EMS with report that police got a call that he wanted to walk out in traffic. Patient has been drinking "a lot of 4 [employer]mer[employer]" And reported to EMS he wanted to kill himself by walking out into traffic or overdosing on blues. Patient has intoxicated in the emergency department. History limited by intoxication PD PAST MEDICAL HISTORY - Past Medical History Cardiovascular: Hypertension, High cholesterol Respiratory: Asthma, Other Neuro: None Endocrine/Autoimmune: None GI: GERD, Other : None HEENT: None Psych: Depression, Anxiety Musculoskeletal: None Derm: None - Past Surgical History Past Surgical History: Yes HEENT: Tonsil/Adenoidectomy - Present Medications Home Medications: Ambulatory Orders Medication Instructions Recorded Confirmed No Known Home Medications 08/29/22 08/29/22 - Allergies Allergies/Adverse Reactions: Allergies Allergy/AdvReac Type Severity Reaction Status Date / Time Penicillins Allergy Severe Anaphylaxis Verified 08/29/22 02:00 sulfamethoxazole Allergy Severe Anaphylaxis Verified 08/29/22 02:00 [From ] trimethoprim [From ] Allergy Severe Anaphylaxis Verified 08/29/22 02:00 - Social History Does the pt smoke?: Yes Smoking Status: Current every day smoker Does the pt drink ETOH?: Yes Does the pt have substance abuse?: Yes - Immunizations Immunizations are current?: No Immunizations: TDAP >10years/unknown - POLST Patient has POLST: No PD ED PE NORMAL - Vitals Vital signs reviewed: Yes - General General: Alert and oriented X 3, No acute distress, Well developed/nourished, Other (Intoxicated with alcohol) - HEENT HEENT: Atraumatic, PERRL, EOMI - Neck Neck: Supple, no meningeal sign - Cardiac Cardiac: RRR - Respiratory Respiratory: No respiratory distress, Clear bilaterally - Abdomen Abdomen: Non tender, Non distended - Derm Derm: Normal color, Warm and dry - Neuro Neuro: No motor deficit, No sensory deficit - Psych Psych: Other (Intoxicated ) Results - Vitals Vitals: Oxygen O2 Source Nasal cannula PD Medical Decision Making - ED course ED course: 32-year-old man presents to the emergency department with [facility] paperwork stating he needs medical evaluation for his mental health. Patient endorsing SI. Clinically intoxicated. Patient will be handed over to daytime EDMD at 7 AM shift change pending sobriety.
[2022-09-03] MEDS ORDERED: HALOPERIDOL 5 MG/ML VIAL IM STA (03:25)
[2022-09-03] MEDS ORDERED: diphenhydrAMINE INJ 50 MG/ML VIAL IM STA (03:26)
[2022-09-03] MEDS ORDERED: LORazepam 2 MG/ML VIAL IM STA (03:26)
--- NOTE | 2022-09-03 03:29 | ED Physician Documentation ---
Restraint [id number] - Immediate Situation Face to Face Evaluation Date: 09/03/22 Face to Face Evaluation Time: 03:30 Restraint Classification: Violent, physical, chemical Restraint Type: Locked extremity - Patient's Reaction & Behaviors Safety: Physically safe Verbal: Demanding Harm: Potential harm to self Physical: Fighting restraints - Behavioral Condition Attitude: Other (intoxicated, uncooperative) Behavior: Uncooperative Orientation: Non-responsive Mood: Labile - Evaluation Review of Systems: Unable to obtain due to uncooperative Pertinent History/Illicit Drugs/Medications/Results: See HPI - Plan Need to Continue or Terminate Violent or Chemical Restraint: We will discontinue When safe
[2022-09-03 04:29] LABS: BASOPHILS # (AUTO) 0.1 10^3/uL (0.0-0.1); BASOPHILS % (AUTO) 0.6 %; EOSINOPHILS # (AUTO) 0.2 10^3/uL (0.0-0.7); EOSINOPHILS % (AUTO) 2.1 %; HCT - HEMATOCRIT 48.5 % (42.0-52.0); HGB - HEMOGLOBIN 16.3 g/dL (14.0-18.0); LYMPHOCYTES # (AUTO) 2.9 10^3/uL (1.5-3.5); LYMPHOCYTES % (AUTO) 36.5 %; MEAN CORPUSCULAR HEMOGLOBIN 30.7 pg (27.0-31.0); MEAN CORPUSCULAR HGB CONC 33.6 g/dL (32.0-36.0); MEAN CORPUSCULAR VOLUME 91.3 fL (80.0-94.0); MEAN PLATELET VOLUME 9.3 fL (7.4-11.4); MONOCYTES # (AUTO) 0.6 10^3/uL (0.0-1.0); MONOCYTES % (AUTO) 7.5 %; NEUTROPHILS # (AUTO) 4.2 10^3/uL (1.5-6.6); PLT - PLATELET COUNT 223 10^3/uL (130-450); RED BLOOD COUNT 5.31 10^6/uL (4.70-6.10); RED CELL DISTRIBUTION WIDTH 12.6 % (12.0-15.0); WHITE BLOOD COUNT 7.9 x10^3/uL (4.8-10.8)
[2022-09-03 04:48] LABS: ALBUMIN 3.9 g/dL (3.2-5.5); ALKALINE PHOSPHATASE 42 IU/L (42-121); ALT ALANINE AMINOTRANSFERASE 32 IU/L (10-60); AST ASPARTATE AMINOTRANSFERASE 25 IU/L (10-42); BILIRUBIN,TOTAL 0.4 mg/dL (0.2-1.0); BUN - BLOOD UREA NITROGEN 10 mg/dL (6-20); CALCIUM 8.2 mg/dL (8.5-10.3); CARBON DIOXIDE - CO2 26 mmol/L (21-32); CHLORIDE 109 mmol/L (101-111); CK- CREATINE KINASE 415 IU/L (22-269); GFR - MDRD 87 (>89); GLUCOSE 108 mg/dL (70-100); MAGNESIUM 2.4 mg/dL (1.7-2.8); POTASSIUM 3.7 mmol/L (3.5-5.0); SODIUM 144 mmol/L (135-145); TOTAL PROTEIN 6.4 g/dL (6.7-8.2)
[2022-09-03 04:49] LABS: ACETAMINOPHEN < 10 ug/mL (10-30); ALBUMIN/GLOBULIN RATIO 1.6 (1.0-2.2); ETOH - ETHANOL 237.4 mg/dL; LIPASE 37 U/L (22-51); SALICYLATE < 6.0 mg/dL
--- NOTE | 2022-09-03 07:48 | ED Physician Documentation ---
Restraint [id number] - Immediate Situation Face to Face Evaluation Date: 09/03/22 Face to Face Evaluation Time: 07:46 Restraint Classification: Violent, physical Restraint Type: Locked extremity - Patient's Reaction & Behaviors Safety: Physically safe Harm: Actual harm to self Other: Resting quietly - Behavioral Condition Attitude: Other (Sedate) Behavior: Other (Sedate) Orientation: Non-responsive Mood: Other (Sedate) - Evaluation Review of Systems: Unable to obtain due to uncooperative Pertinent History/Illicit Drugs/Medications/Results: See HPI - Plan Need to Continue or Terminate Violent or Chemical Restraint: Will trial off restraints at this time.
[2022-09-03 10:02] LABS: MUDS CUTOFF CONCENTRATIONS CUTOFF CONC BELOW:
[2022-09-03 10:06] LABS: BILIRUBIN,URINE NEGATIVE (NEGATIVE); GLUCOSE, URINE (UA) NEGATIVE (NEGATIVE); KETONES,URINE (UA) NEGATIVE (NEGATIVE); LEUKOCYTE ESTERASE, URINE NEGATIVE (NEGATIVE); NITRITE,URINE NEGATIVE (NEGATIVE); OCCULT BLOOD,URINE NEGATIVE (NEGATIVE); PH,URINE 6.5 PH (5.0-7.5); PROTEIN,URINE NEGATIVE (NEGATIVE); UROBILINOGEN,URINE 0.2 (NORMAL) E.U./dL (NORMAL)
[2022-09-03 10:08] LABS: CLARITY,URINE CLEAR (CLEAR)
[2022-09-03 10:14] LABS: AMPHETAMINE SCREEN,URINE NEGATIVE (NEGATIVE); BARBITURATE SCREEN,UR NEGATIVE (NEGATIVE); BENZODIAZEPINES SCREEN, URINE NEGATIVE (NEGATIVE); COCAINE SCREEN URINE NEGATIVE (NEGATIVE); METHADONE SCREEN, URINE NEGATIVE (NEGATIVE); METHAMPHETAMINES SCREEN, URINE NEGATIVE (NEGATIVE); OPIATE SCREEN, URINE NEGATIVE (NEGATIVE); OXYCODONE SCREEN, URINE NEGATIVE (NEGATIVE); PROPOXYPHENE SCREEN, URINE NEGATIVE (NEGATIVE); THC CANNABINOID SCREEN, URINE POSITIVE (NEGATIVE); TRICYCLIC ANTIDEPRESSANT,URINE NEGATIVE (NEGATIVE)
--- NOTE | 2022-09-03 16:57 | ED Physician Documentation ---
ED Addendum - Addendum Addendum: 09/03/22 16:56 Patient received a signout from off going physician, please see their d ocumentation for further detail. Patient evaluated independently at approximately 0730 hrs. Found to be resting comfortably. Restraint orders were renewed with instructions to begin trialing out of restraints. Labs reviewed. Patient has elevated blood ethanol but toxicologic screen otherwise negative. Monitor carefully throughout my shift pending DCR evaluation. Patient repeatedly left his room and needed to be redirected back into his bed. Continually reiterated "I am not suicidal, I was never suicidal its just that when I drink I want to kill myself and try to jump into traffic". Patient evaluated independently by DCR. DCR reports the patient has also been making homicidal statements to the patient's family including statements that he was going to "eat your face" to his uncle with whom he lives. Did obtain an EKG: Sinus rhythm with rate 83 bpm. Normal axis. Normal CA, QRS, QTc intervals. No ST segment elevations or T wave inversions. Will be signing out to the oncoming physician, please see their documentation for further detail. 09/03/22 17:30
[2022-09-03] MEDS: chlordiazePOXIDE 25 MG CAPSULE PO STA ×2 (18:53)
[2022-09-04 06:27] VITALS: BP 134/70
--- NOTE | 2022-09-16 09:08 | ED Physician Documentation ---
ED Addendum - Addendum Addendum: 09/16/22 09:07 no late entry - no changes during my shift. signed out to oncoming ED physician.
--- NOTE | 2022-09-25 14:03 | ED Physician Documentation ---
ED Addendum - Addendum Addendum: 09/25/22 14:01 Late entry: The patient was in ER at time of my shift start. He was detained by DC[facility] and [facility] about 8:30 am. No problems at the change of shift. He had breakfast. Was cooperative. [facility] arrived about an hour later and initiated transport of the patient. Disposition: transfer to psychiatric facility in stable condition. Diagnoses: alcohol intoxication suicidal ideation poor insight
== END 2022-09-04 08:54 ==
LOC: EDUNIT# → ED 02:37
DX: R45.851 Suicidal ideations (principal); R41.89 Other symptoms and signs involving cognitive functions and awareness; F10.129 Alcohol abuse with intoxication, unspecified; Y90.7 Blood alcohol level of 200-239 mg/100 ml; Z78.1 Physical restraint status; F17.200 Nicotine dependence, unspecified, uncomplicated; Z20.822 Contact with and (suspected) exposure to COVID-19
CPT/HCPCS: 36415; 80053; 80306; 80307; 80320; 80329; 81003; 82550; 83690; 83735; 84443; 85025; 87635; 93005; 96372; 99284; 99285; A9270; J1200; J2060; 81001; 87086

== ENCOUNTER 2022-11-30 10:54 | Outpatient (CLI) | payer MEDICAID ==
[2022-11-30 18:20] LABS: ALBUMIN 4.7 g/dL (3.2-5.5); ALBUMIN/GLOBULIN RATIO 2.4 (1.0-2.2); ALKALINE PHOSPHATASE 37 IU/L (42-121); ALT ALANINE AMINOTRANSFERASE 23 IU/L (10-60); AST ASPARTATE AMINOTRANSFERASE 19 IU/L (10-42); BILIRUBIN,TOTAL 1.2 mg/dL (0.2-1.0); BUN - BLOOD UREA NITROGEN 10 mg/dL (6-20); CALCIUM 9.6 mg/dL (8.5-10.3); CARBON DIOXIDE - CO2 33 mmol/L (21-32); CHLORIDE 104 mmol/L (101-111); CHOL/HDL RATIO 4.4 (<5.0); CHOLESTEROL 140 mg/dL; GFR - MDRD 87 (>89); GLUCOSE 103 mg/dL (74-104); HDL CHOLESTEROL 32 mg/dL; LDL CHOLESTEROL,CALCULATED 89 mg/dL; LDL/HDL RATIO 2.8 (<3.6); POTASSIUM 3.7 mmol/L (3.5-4.5); SODIUM 141 mmol/L (135-145); TOTAL PROTEIN 6.7 g/dL (6.4-8.9); TRIGLYCERIDES 97 mg/dL (48-352); VLDL CHOLESTEROL 19 mg/dL
[2022-11-30 18:31] LABS: THYROID STIMULATING HORMONE 1.26 uIU/mL (0.34-5.60)
[2022-11-30 20:43] LABS: ESTIMATED AVERAGE GLUCOSE 103 mg/dL (70-100); HEMOGLOBIN A1c% 5.2 % (4.27-6.07)
[2022-12-01 04:09] LABS: HBsAG SCREEN Negative (Negative); HCV AB Non Reactive (Non Reactive); HIV SCREEN 4TH GENERATION Non Reactive (Non Reactive)
== END 2022-11-30 10:55 | disposition home or self-care (01) ==
LOC: LAB.N 10:54
PROVIDERS: ATTEND Family Medicine
DX: R60.0 Localized edema (principal); F41.9 Anxiety disorder, unspecified; F10.11 Alcohol abuse, in remission
CPT/HCPCS: 36415; 80053; 80061; 83036; 83721; 83880; 84443; 86803; 87340; 87389

== ENCOUNTER 2023-01-28 19:58 | Outpatient (CLI) | payer MEDICAID | END 2023-01-28 19:59 | disposition critical access hospital (66) | LOC: EMS 19:58 | DX: R41.82 Altered mental status, unspecified (principal); F10.129 Alcohol abuse with intoxication, unspecified; R45.1 Restlessness and agitation; Z78.1 Physical restraint status | CPT/HCPCS: A0425; A0429; A0999 ==

== ENCOUNTER 2023-01-28 20:13 | Emergency (ER) | payer MEDICAID ==
[2023-01-28 20:29] LABS: MUDS CUTOFF CONCENTRATIONS CUTOFF CONC BELOW:
--- NOTE | 2023-01-28 20:29 | ED Physician Documentation ---
History of Present Illness - Stated complaint Stated Complaint: ETOH - Chief complaint Chief Complaint: General - History obtained from History obtained from: Patient, EMS - Additonal information Additional information: BIBA. Police responded to reports of this patient exhibiting odd behavior, appearing to be heavily intoxicated in and near [facility] in [place]. The patient is brought to the ED with RAINA paperwork from police that indicate patient fell repeatedly when trying to walk. However, there is no indication on the RAINA paperwork to indicate SI, HI. On my HPI, patient admits to drinking alcohol heavily tonight but again denies SI, HI. He is AAOx3 and repeatedly requests discharge. Review of Systems Psychiatric: denies: Depressed, Suicidal, Homicidal, Hallucinations PD PAST MEDICAL HISTORY - Past Medical History Cardiovascular: Hypertension, High cholesterol Respiratory: Asthma, Other Neuro: None Endocrine/Autoimmune: None GI: GERD, Other : None HEENT: None Psych: Depression, Anxiety Musculoskeletal: None Derm: None - Past Surgical History Past Surgical History: Yes HEENT: Tonsil/Adenoidectomy - Present Medications Home Medications: Ambulatory Orders Medication Instructions Recorded Confirmed No Known Home Medications 08/29/22 08/29/22 - Allergies Allergies/Adverse Reactions: Allergies Allergy/AdvReac Type Severity Reaction Status Date / Time Penicillins Allergy Severe Anaphylaxis Verified 01/28/23 20:19 sulfamethoxazole Allergy Severe Anaphylaxis Verified 01/28/23 20:19 [From ] trimethoprim [From ] Allergy Severe Anaphylaxis Verified 01/28/23 20:19 - Social History Does the pt smoke?: Yes Smoking Status: Current every day smoker Does the pt drink ETOH?: Yes Does the pt have substance abuse?: Yes - Immunizations Immunizations are current?: No Immunizations: TDAP >10years/unknown - POLST Patient has POLST: No PD ED PE NORMAL - Vitals Vital signs reviewed: Yes - General General: Alert and oriented X 3, No acute distress, Well developed/nourished - HEENT HEENT: Atraumatic, PERRL, EOMI - Cardiac Cardiac: RRR, No murmur - Respiratory Respiratory: No respiratory distress, Clear bilaterally - Neuro Neuro: Alert and oriented X 3, Normal speech Eye Opening: Spontaneous Motor: Obeys Commands Verbal: Oriented GCS Score: 15 Results - Vitals Vitals: Vital Signs - 24 hr 01/28/23 01/28/23 20:19 21:37 Temperature 36.8 C Heart Rate 84 97 Respiratory 20 19 Rate Blood Pressure 140/80 H 156/101 H O2 Saturation 96 98 Oxygen O2 Source Room air - Labs Labs: Laboratory Tests 01/28/23 20:17 Urine Color YELLOW Urine Clarity CLEAR Urine pH 6.0 Ur Specific [place] <=1.005 Urine Protein NEGATIVE Urine Glucose (UA) NEGATIVE Urine Ketones NEGATIVE Urine Occult Blood NEGATIVE Urine Nitrite NEGATIVE Urine Bilirubin NEGATIVE Urine Urobilinogen 0.2 (NORMAL) Ur Leukocyte Esterase NEGATIVE Ur Microscopic Review NOT INDICATED Urine Culture Comments NOT INDICATED Urine Opiates Screen NEGATIVE Ur Oxycodone Screen NEGATIVE Urine Methadone Screen NEGATIVE Ur Propoxyphene Screen NEGATIVE Ur Barbiturates Screen NEGATIVE Ur Tricyclics Screen NEGATIVE Ur Phencyclidine Scrn NEGATIVE Ur Amphetamine Screen NEGATIVE U Methamphetamines Scrn NEGATIVE U Benzodiazepines Scrn NEGATIVE Urine Cocaine Screen NEGATIVE U Cannabinoids Screen POSITIVE H PD Medical Decision Making - ED course Complexity details: considered differential, d/w patient ED course: Patient reportedly intoxicated in public place, police RAINA indicates "subject was too intoxicated too [sic] walk. When asked to demonstrate he could walk he almost fell several separate times into benches." Shortly after arrival to ED, patient is repeatedly requesting discharge. He strongly denies SI, HI on my interview. He admits to drinking alcohol tonight. Patient ambulates from his room to the bathroom and back without any assistance and with steady gait. He is AAOx3. There is strong odor of alcohol on his breath and I explained that I was comfortable discharging him as long as he was able to obtain a ride to take him back home. He contacted family member (grandmother) and she is coming to the ED to pick him up. He is thus discharged. Departure - Departure Disposition: 01 Home, Self Care Clinical Impression: Alcohol intoxication Qualifiers: Complication of substance-induced condition: uncomplicated Qualified Code(s): F10.920 - Alcohol use, unspecified with intoxication, uncomplicated Condition: Good Instructions: ED Alcohol Intoxication Comments: If you are having problems with alcoholism, consider seeking detox at an appropriate facility. One option is [facility] which is a recovery center located in [place]. You can reach [facility] at any time of day or night at . Forms: PCP List Discharge Date/Time: 01/28/23 21:37
[2023-01-28 20:35] LABS: BILIRUBIN,URINE NEGATIVE (NEGATIVE); GLUCOSE, URINE (UA) NEGATIVE (NEGATIVE); KETONES,URINE (UA) NEGATIVE (NEGATIVE); LEUKOCYTE ESTERASE, URINE NEGATIVE (NEGATIVE); NITRITE,URINE NEGATIVE (NEGATIVE); OCCULT BLOOD,URINE NEGATIVE (NEGATIVE); PROTEIN,URINE NEGATIVE (NEGATIVE); UROBILINOGEN,URINE 0.2 (NORMAL) E.U./dL (NORMAL)
[2023-01-28 20:43] LABS: CLARITY,URINE CLEAR (CLEAR)
[2023-01-28 20:44] LABS: AMPHETAMINE SCREEN,URINE NEGATIVE (NEGATIVE); BARBITURATE SCREEN,UR NEGATIVE (NEGATIVE); BENZODIAZEPINES SCREEN, URINE NEGATIVE (NEGATIVE); COCAINE SCREEN URINE NEGATIVE (NEGATIVE); METHADONE SCREEN, URINE NEGATIVE (NEGATIVE); METHAMPHETAMINES SCREEN, URINE NEGATIVE (NEGATIVE); OPIATE SCREEN, URINE NEGATIVE (NEGATIVE); OXYCODONE SCREEN, URINE NEGATIVE (NEGATIVE); PROPOXYPHENE SCREEN, URINE NEGATIVE (NEGATIVE); THC CANNABINOID SCREEN, URINE POSITIVE (NEGATIVE); TRICYCLIC ANTIDEPRESSANT,URINE NEGATIVE (NEGATIVE)
[2023-01-28 21:41] VITALS: BP 156/101; O2SAT 98
== END 2023-01-28 21:37 | disposition home or self-care (01) ==
LOC: EDBD → EDUNIT# → ED 20:13
DX: F10.129 Alcohol abuse with intoxication, unspecified (principal); F17.200 Nicotine dependence, unspecified, uncomplicated
CPT/HCPCS: 80053; 80306; 80307; 80320; 80329; 81001; 81003; 83690; 84443; 85025; 87086; 99283

== ENCOUNTER 2023-05-18 16:48 | Outpatient (CLI) | payer MEDICAID | END 2023-05-18 23:59 | disposition EMS.NT | LOC: EMS 16:48 | DX: F10.90 Alcohol use, unspecified, uncomplicated (principal) ==

== ENCOUNTER 2023-05-18 17:58 | Emergency (ER) | payer MEDICAID ==
[2023-05-18 18:19] VITALS: BP 133/78; O2SAT 97
--- NOTE | 2023-05-18 18:40 | ED Physician Documentation ---
History of Present Illness - Stated complaint Stated Complaint: COMBATIVE - Chief complaint Chief Complaint: General - Additonal information Additional information: 32-year-old male who has been to the emergency department before for alcohol intoxication presents emergency department today for alcohol intoxication. Patient is brought in by [place] police as patient was found to be throwing himself on the ground and hit his head and neck multiple times. Police brought him in because they were concerned he was a danger to himself given how intoxicated the patient is acting. Pt is denying any SI/HI for myself and made no statements to the police about SI/HI as well. Pt is complaining of neck pain and he did attempt to fall down and hit his head on the ground but staff was able to stop him from doing so. Pt also purposefully hit head against the wall. It does not sound like there was any loss of consciousness. PD PAST MEDICAL HISTORY - Past Medical History Cardiovascular: Hypertension, High cholesterol Respiratory: Asthma, Other Neuro: None Endocrine/Autoimmune: None GI: GERD, Other : None HEENT: None Psych: Depression, Anxiety Musculoskeletal: None Derm: None - Past Surgical History Past Surgical History: Yes HEENT: Tonsil/Adenoidectomy - Present Medications Home Medications: Ambulatory Orders Medication Instructions Recorded Confirmed Losartan [Cozaar] 50 mg PO DAILY 05/18/23 05/18/23 - Allergies Allergies/Adverse Reactions: Allergies Allergy/AdvReac Type Severity Reaction Status Date / Time Penicillins Allergy Severe Anaphylaxis Verified 05/18/23 18:09 sulfamethoxazole Allergy Severe Anaphylaxis Verified 05/18/23 18:09 [From ] trimethoprim [From ] Allergy Severe Anaphylaxis Verified 05/18/23 18:09 - Social History Does the pt smoke?: Yes Smoking Status: Current every day smoker Does the pt drink ETOH?: Yes Does the pt have substance abuse?: Yes Substance Use and Type: Marijuana - Immunizations Immunizations are current?: No Immunizations: TDAP >10years/unknown - POLST Patient has POLST: No PD ED PE NORMAL - Vitals Vital signs reviewed: Yes - General General: Alert and oriented X 3, Well developed/nourished, Other (Pt appears intoxicated) - HEENT HEENT: Atraumatic, PERRL, Moist mucous membranes - Neck Neck: No bony TTP, No JVD - Cardiac Cardiac: RRR, No murmur, No gallop - Respiratory Respiratory: No respiratory distress - Abdomen Abdomen: Normal bowel sounds, Soft, Non tender, No organomegaly - Back Back: No CVA TTP - Derm Derm: Normal color, Warm and dry, No rash - Extremities Extremities: No deformity, No tenderness to palpate, Normal ROM s pain, No edema, No calf tenderness / cord - Psych Psych: Other (Consistently denies any suicidal homicidal ideation. Appears to be quite intoxicated.) Results - Vitals Vitals: Vital Signs - 24 hr 05/18/23 05/18/23 18:09 20:38 Temperature 36.4 C L Heart Rate 84 90 Respiratory 20 20 Rate Blood Pressure 133/78 H O2 Saturation 97 97 Oxygen O2 Source Room air - Rads (name of study) Head CT without Relevant Findings:: Final report received, EMP independent interpretation of test, Other (No acute intracranial findings) Cervical CT without Relevant Findings:: Final report received, EMP independent interpretation of test, Other (No acute cervical abnormalities or findings.) PD Medical Decision Making - ED course ED course: Patient presents with altered mental status likely secondary to EtOH intoxication. Patient maintained his airway, and metabolized to sobriety and no longer altered. Police reportedly did see patient fall multiple times falling hitting head so a CT head and neck was complete and there was no Intracranial hemorrhages or abnormalities no cervical fractures or other acute findings. no overt signs of opioid intoxication or coingestion. No infectious symptoms and afebrile so doubt sepsis. Exam prior to discharge shows no evidence of Wernicke's encephalopathy. Patient with no signs of any medical emergencies at this time. Patient observed until he was able to ambulate without difficulty and eat and drink with no difficulty. No signs or symptoms of alcohol withdrawal while in the emergency department. Safe ride home was arranged with his grandmother. Patient offered to transfer to rehab facility but declined. Denies any SI/HI Departure - Departure Disposition: 01 Home, Self Care Clinical Impression: Alcohol intoxication Qualifiers: Complication of substance-induced condition: with unspecified complication Qualified Code(s): F10.929 - Alcohol use, unspecified with intoxication, unspecified Instructions: ED Alcohol Intoxication Comments: We have completed a head and neck CT for further evaluation of your head injury and fall that you experienced today. Both the head and neck CT has come back negative for any abnormal findings. I would strongly consider cutting back on alcohol use and following up with your primary care provider for additional resources to help with this. Please come back to the emergency department for starting to develop any loss of consciousness, altered mental status, persistent nausea vomiting, confusion, or any other concerning symptoms. Forms: PCP List Discharge Date/Time: 05/18/23 20:40
--- NOTE | 2023-05-18 19:22 | CT Report ---
PROCEDURE: Cervical Spine WO INDICATIONS: GLF TECHNIQUE: Noncontrast 3 mm thick sections acquired from the skull base to the T4 level. Sagittal and coronal r eformats were then constructed. For radiation dose reduction, the following was used: automated exp osure control, adjustment of mA and/or kV according to patient size. COMPARISON: None. FINDINGS: Image quality: Excellent. Bones: No fractures or dislocations. Visualized superior ribs are intact. Soft tissues: Prevertebral soft tissues are normal in thickness. No paravertebral hematomas. No ap ical pneumothoraces. IMPRESSION: No acute, displaced fracture or traumatic subluxation. Reviewed by: Richard Christensen MD on 05/18/2023 7:21 PM PST Approved by: Richard Christensen MD on 05/18/2023 7:21 PM [facility] Station ID: [id number]
--- NOTE | 2023-05-18 19:24 | CT Report ---
PROCEDURE: Head WO INDICATIONS: GLF TECHNIQUE: Noncontrast 4.5 mm thick angled axial sections acquired from the foramen magnum to the vertex. For r adiation dose reduction, the following was used: automated exposure control, adjustment of mA and/or kV according to patient size. COMPARISON: None. FINDINGS: Image quality: Excellent. CSF spaces: Basal cisterns are patent. No extra-axial fluid collections. Ventricles are normal in size and shape. Brain: No midline shift. No intracranial masses or hemorrhage. Perla-white matter interface is norm al. Skull and face: Calvarium and visualized facial bones are intact, without suspicious lesions. Sinuses: Visualized sinuses and mastoids are clear. IMPRESSION: No acute intracranial pathology. Reviewed by: Richard Christensen MD on 05/18/2023 7:22 PM [facility] Approved by: Richard Christensen MD on 05/18/2023 7:22 PM [facility] Station ID: [id number]
== END 2023-05-18 20:40 | disposition home or self-care (01) ==
LOC: EDUNIT# → ED 17:58
DX: F10.129 Alcohol abuse with intoxication, unspecified (principal); F17.200 Nicotine dependence, unspecified, uncomplicated
CPT/HCPCS: 99284

== ENCOUNTER 2023-06-07 11:00 | Outpatient (CLI) | payer MEDICAID | END 2023-06-07 11:01 | disposition home or self-care (01) | LOC: DI.N 11:00 | PROVIDERS: ATTEND Internal Medicine | DX: Z53.9 Procedure and treatment not carried out, unspecified reason (principal) ==

== ENCOUNTER 2023-06-07 11:14 | Outpatient (CLI) | payer MEDICAID ==
--- NOTE | 2023-06-07 13:22 | XRAY Report ---
PROCEDURE: Foot 3+V RT INDICATIONS: FOOT PAIN, RIGHT TECHNIQUE: 3 views of the foot were acquired. COMPARISON: None. FINDINGS: Bones: No fractures or dislocations. Tiny corticated ossific density in the medial aspect of the fi rst IP joint likely represents an accessory ossicle or sequela of remote injury. Normal alignment. Nakita int spaces are maintained. No suspicious bony lesions. Soft tissues: No tibiotalar joint effusion. Achilles tendon appears normal. IMPRESSION: No acute bony abnormality. Reviewed by: Pranav Marte MD on 06/07/2023 1:20 PM PDT Approved by: Pranav Marte MD on 06/07/2023 1:20 PM PDT Station ID: [id number]
== END 2023-06-07 23:59 | disposition home or self-care (01) ==
LOC: DI.N 11:14
PROVIDERS: ATTEND Internal Medicine
DX: M79.671 Pain in right foot (principal)

== ENCOUNTER 2023-06-27 11:08 | Outpatient (CLI) | payer MEDICAID ==
--- NOTE | 2023-06-27 13:39 | XRAY Report ---
PROCEDURE: Chest 2V INDICATIONS: DYSPNEA TECHNIQUE: 2 views of the chest were acquired. COMPARISON: None. FINDINGS: Surgical changes and devices: None. Lungs and pleura: No pleural effusions or pneumothorax. Lungs are clear. Mediastinum: Mediastinal contours appear normal. Heart size is normal. Bones and chest wall: No suspicious bony lesions. Overlying soft tissues appear unremarkable. IMPRESSION: No acute cardiopulmonary process. Reviewed by: Dilcia Moore MD on 06/27/2023 1:38 PM PDT Approved by: Dilcia Moore MD on 06/27/2023 1:38 PM PDT Station ID: [id number]
== END 2023-06-27 23:59 | disposition home or self-care (01) ==
LOC: DI.N 11:08
PROVIDERS: ATTEND Physician Assistant Medical
DX: R06.00 Dyspnea, unspecified (principal)